=== PATIENT | female | born 1990 | race Two or more races ===

== ENCOUNTER 2017-01-17 23:58 | Emergency (ER) | payer MEDICAID, OTHER ==
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
[2017-01-18] MEDS ORDERED: ACETAMINOPHEN 325 MG TABLET PO STA (00:41)
[2017-01-18] MEDS ORDERED: IBUPROFEN 600 MG TABLET PO STA (00:41)
[2017-01-18] MEDS ORDERED: IBUPROFEN 600 MG TABLET PO ONE (00:58)
[2017-01-18] MEDS ORDERED: ACETAMINOPHEN 325 MG TABLET PO ONE (00:58)
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
[2017-01-18 01:59] VITALS: BP 118/69
== END 2017-01-18 01:59 | disposition home or self-care (01) ==
LOC: ED 23:58
DX: S62.366A Nondisplaced fracture of neck of fifth metacarpal bone, right hand, initial encounter for closed fracture (principal); W51.XXXA Accidental striking against or bumped into by another person, initial encounter; Y93.89 Activity, other specified
CPT/HCPCS: 29125; 73130; 99283; A9270

== ENCOUNTER 2018-06-07 09:34 | Emergency (ER) | payer MEDICAID, OTHER ==
[2018-06-07 10:41] LABS: BILIRUBIN,URINE NEGATIVE (NEGATIVE); CLARITY,URINE CLEAR (CLEAR); GLUCOSE, URINE (UA) NEGATIVE (NEGATIVE); KETONES,URINE (UA) NEGATIVE (NEGATIVE); LEUKOCYTE ESTERASE, URINE NEGATIVE (NEGATIVE); NITRITE,URINE NEGATIVE (NEGATIVE); OCCULT BLOOD,URINE NEGATIVE (NEGATIVE); PROTEIN,URINE NEGATIVE (NEGATIVE); UROBILINOGEN,URINE 0.2 (NORMAL) E.U./dL (NORMAL)
[2018-06-07 10:43] LABS: HCG UR QUAL NEGATIVE
[2018-06-07] MEDS ORDERED: KETOROLAC 60 MG/2 ML VIAL IM STA (14:05)
--- NOTE | 2018-06-07 14:08 | ED Physician Documentation ---
History of Present Illness - Stated complaint Stated Complaint: FEMALE /CRAMPING - Chief complaint Chief Complaint: Abd Pain - Additonal information Additional information: hx from pt 28 y/o female IUD X 2 years acute pelvic pain onset last night no vag bleed or dc Review of Systems Constitutional: denies: Fever GI: reports: Abdominal Pain : reports: Control (IUD). 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 - Present Medications Home Medications: Ambulatory Orders Medication Instructions Recorded Confirmed Levonorgestrel [Mirena] 1 each IY ONCE 06/07/18 06/07/18 - Allergies Allergies/Adverse Reactions: Allergies Allergy/AdvReac Type Severity Reaction Status Date / Time No Known Drug Allergies Allergy Verified 06/07/18 09:54 - Social History Does the pt smoke?: No Smoking Status: Never smoker Does the pt drink ETOH?: No Does the pt have substance abuse?: No - Immunizations Immunizations are current?: Yes - POLST Patient has POLST: No PD ED PE NORMAL - Vitals Vital signs reviewed: Yes - Cardiac Cardiac: RRR - Respiratory Respiratory: No respiratory distress, Clear bilaterally - Abdomen Abdomen: Soft. No: Non tender (TTP suprapubic) - Female Female : Office Support Assistant present (Nica), Other (small whitich dc, no blood, no IUD strings visible - even used CTA wipe away mucous and white dc and try to find the wires but cannot be seen of felt at this time, no CMT, cx sent) Results - Vitals Vitals: Vital Signs - 24 hr 06/07/18 06/07/18 06/07/18 09:52 16:43 16:45 Temperature 36.3 C L Heart Rate 97 94 Respiratory 14 16 Rate Blood Pressure 140/90 H 140/93 H O2 Saturation 100 98 06/07/18 18:28 Temperature Heart Rate 97 Respiratory 18 Rate Blood Pressure 120/86 H O2 Saturation 98 Oxygen O2 Source Room air - Labs Labs: Laboratory Tests 06/07/18 10:00 Urine Color YELLOW Urine Clarity CLEAR Urine pH 6.0 Ur Specific [place] 1.015 Urine Protein NEGATIVE Urine Glucose (UA) NEGATIVE Urine Ketones NEGATIVE Urine Occult Blood NEGATIVE Urine Nitrite NEGATIVE Urine Bilirubin NEGATIVE Urine Urobilinogen 0.2 (NORMAL) Ur Leukocyte Esterase NEGATIVE Ur Microscopic Review NOT INDICATED Urine Culture Comments NOT INDICATED Urine HCG, Qual NEGATIVE - Rads (name of study) pelvic sono with doppler Radiology: See rad report (IUD in place, otherwise normal uterus and ovaries) PD MEDICAL DECISION MAKING - ED course ED course: acute onset suprapubic pain exam not suggestive of appy, brown, PID etc UA neg HCG neg sono neg for cyst ruptures torsed or otherwise, although strings not visualized the IUD is in place on rpt exam still focally TTP over bueno[rapubic region, no localizing to RLQ perhaps pain from IUD strings in cervix ? will reassure and dc with meds for pain control and [facility] fup Wed when office reopens after holiday it is evening Raquel gloria per [facility] [place], all pharmacies on [facility], [facility] and [place] are closed until 06/09 initially was advised could dispense essential meds from ER for this situation then learned that according to [place] state law may not dispense except designated prepacks whih would be oxycodone hydrocodone and or flexeril so cancelled tramadol motrin and robaxin and changed to hydrocodone and flexeril and pt can buy OTC motrin pt upset about length of stay arrived at 0952 in room at 1306 seen by me, pelvic exam performed, pain meds given sono ordered after IUD string not visualized - at 1405 sono done at 1626 and resulted 1637 results reviewed and pt updated more pain meds given delay trying to determine how to get patients medications on holiday weekend with no pharmacies open in our community flagged for dc at 1802 dc at 1905 Departure - Departure Disposition: 01 Home, Self Care Clinical Impression: Pelvic pain Condition: Good Instructions: ED Pelvic Pain [facility] Follow-Up: Caden Parish MD [Provider Admit Priv/Credential] - Comments: Your exam does not suggest appendicitis or PID The urine sample showed no infection The test was negative On exam the IUD strings could be be seen - but on ultrasound the main IUD is in place in the uterine canal. Also the ovaries looked fine The exam does not suggest an infection but cultures have been sent and the ER staff will call if they are positive. It is possible the IUD wires are in the cervix causing cramping and pain I cannot remove the IUD as I cannot see the wires/strings So for now I suggest we let you go home with medication for the pain - medications were dispensed from the ER as all pharmacies are now closed - only a limited number of medications are available to dispense so provided hydrocodone and flexeril and you will need to take over the counter motrin And then have you follow up at the [facility] office Wed for a recheck and possible removal of the IUD. Forms: Activity restrictions Discharge Date/Time: 06/07/18 19:05
[2018-06-07] MEDS ORDERED: oxyCODONE 5 MG TABLET PO STA (16:34)
--- NOTE | 2018-06-07 16:37 | Ultrasound Report ---
Reason: pelvic pain, no IUD strings vis, acute Procedure Date: 06/07/2018 Accession Number: [id number] / [id number] Procedure: US - Pelvic w/Transvag+Doppler Comp CPT Code: FULL RESULT: EXAM: PELVIC ULTRASOUND EXAM DATE: 06/07/2018 04:26 PM. CLINICAL HISTORY: Pelvic pain, no IUD strings vis, acute. COMPARISON: None. TECHNIQUE: Realtime transabdominal pelvic scan performed to identify the uterus and adnexa and as an overview of other pelvic structures, followed by transvaginal scan to provide greater detail of the uterus and adnexa, with static image documentation. FINDINGS: Uterus: 10.4 x 4.1 x 5.8 cm, volume 129 cc. Anteverted position. Normal overall size and echotexture. Masses: None. Endometrium: 5.5 mm. Normal thickness of the endometrium. The IUD appears to be in expected position within the endometrial cavity. Cervix: Unremarkable. Right Ovary: 3.4 x 2.3 x 2.2 cm, volume 8.9 cc. Normal echotexture and blood flow. 1.9 cm simple right ovarian follicular cyst. Left Ovary: 3.4 x 1.6 x 2.2 cm, volume 6.2 cc. Normal echotexture and blood flow. Free Fluid: None. Other: None. IMPRESSION: 1. IUD appears to be in expected position within the endometrial cavity. 2. Normal appearance of the endometrium. 3. Bilateral ovaries appear normal. [facility]
[2018-06-07] MEDS ORDERED: HYDROmorphone 1 MG/ML CARPUJECT IM STA (17:54)
[2018-06-07] MEDS ORDERED: ONDANSETRON ODT 4 MG TABLET TL STA (17:54)
[2018-06-07] MEDS ORDERED: traMADol 50 MG TABLET PO STA (17:55)
[2018-06-07] MEDS ORDERED: METHOCARBAMOL 500 MG TABLET PO STA (17:56)
[2018-06-07] MEDS ORDERED: IBUPROFEN 400 MG TABLET PO STA (17:57)
[2018-06-07 18:29] VITALS: BP 120/86
[2018-06-07] MEDS ORDERED: HYDROcod/ACET 5/325 Prepack 4 PO STA (18:49)
[2018-06-07] MEDS ORDERED: CYCLOBENZAPRINE 10 MG Prepack 2 PO PRN (18:49)
== END 2018-06-07 19:05 | disposition home or self-care (01) ==
LOC: ED 09:34
DX: R10.2 Pelvic and perineal pain (principal)
CPT/HCPCS: 76830; 76856; 81003; 81025; 87491; 87591; 93975; 96372; 99283; 99284; A9270; J1170; Q0162; 81001; 87086

== ENCOUNTER 2018-06-09 08:00 | Outpatient (CLI) | payer OTHER | END 2018-06-09 23:59 | disposition home or self-care (01) | LOC: LAB.R 08:00 | PROVIDERS: ATTEND Obstetrics & Gynecology | DX: Z11.3 Encounter for screening for infections with a predominantly sexual mode of transmission (principal) | CPT/HCPCS: 87491; 87591 ==

== ENCOUNTER 2018-07-23 10:07 | Outpatient (CLI) | payer BC, OTHER ==
[2018-07-23 18:04] LABS: BASOPHILS % (AUTO) 0.3 %; EOSINOPHILS # (AUTO) 0.1 10^3/uL (0.0-0.7); HGB - HEMOGLOBIN 12.9 g/dL (12.0-16.0); LYMPHOCYTES # (AUTO) 1.5 10^3/uL (1.5-3.5); LYMPHOCYTES % (AUTO) 18.6 %; MEAN CORPUSCULAR HEMOGLOBIN 26.1 pg (27.0-31.0); MEAN CORPUSCULAR HGB CONC 31.4 g/dL (32.0-36.0); MEAN CORPUSCULAR VOLUME 83.2 fL (81.0-99.0); MEAN PLATELET VOLUME 9.2 fL (7.9-10.8); MONOCYTES # (AUTO) 0.5 10^3/uL (0.0-1.0); MONOCYTES % (AUTO) 6.9 %; NEUTROPHILS # (AUTO) 5.8 10^3/uL (1.5-6.6); NEUTROPHILS % (AUTO) 73.2 %; PLT - PLATELET COUNT 248 10^3/uL (130-450); RED BLOOD COUNT 4.95 10^6/uL (4.20-5.40); RED CELL DISTRIBUTION WIDTH 14.5 % (12.0-15.0); WHITE BLOOD COUNT 7.9 x10^3/uL (4.8-10.8)
[2018-07-23 18:32] LABS: HB2 TOTAL 14.1 g/dL; HEMOGLOBIN A1C 0.43 g/dL; HEMOGLOBIN A1C % 4.9 % (4.6-6.2)
[2018-07-23 18:36] LABS: ALBUMIN 4.2 g/dL (3.2-5.5); ALBUMIN/GLOBULIN RATIO 1.3 (1.0-2.2); BILIRUBIN,TOTAL 0.9 mg/dL (0.2-1.0); CALCIUM 9.4 mg/dL (8.5-10.3); CREATININE 0.8 mg/dL (0.4-1.0); TOTAL PROTEIN 7.4 g/dL (6.7-8.2)
== END 2018-07-23 10:08 | disposition home or self-care (01) ==
LOC: LAB.WCP 10:07
PROVIDERS: ATTEND Physician Assistant
DX: Z00.00 Encounter for general adult medical examination without abnormal findings (principal)
CPT/HCPCS: 36415; 80053; 83036; 84443; 85025

== ENCOUNTER 2018-10-01 12:51 | Emergency (ER) | payer BC ==
[2018-10-01 13:02] VITALS: BP 134/88
[2018-10-01 13:16] LABS: BILIRUBIN,URINE NEGATIVE (NEGATIVE); GLUCOSE, URINE (UA) NEGATIVE (NEGATIVE); KETONES,URINE (UA) NEGATIVE (NEGATIVE); LEUKOCYTE ESTERASE, URINE NEGATIVE (NEGATIVE); NITRITE,URINE NEGATIVE (NEGATIVE); OCCULT BLOOD,URINE NEGATIVE (NEGATIVE); PROTEIN,URINE NEGATIVE (NEGATIVE); UROBILINOGEN,URINE 0.2 (NORMAL) E.U./dL (NORMAL)
[2018-10-01 13:20] LABS: CLARITY,URINE CLEAR (CLEAR); HCG UR QUAL NEGATIVE
--- NOTE | 2018-10-01 13:53 | ED Physician Documentation ---
History of Present Illness - Stated complaint Stated Complaint: LOWER BACK PAIN - Chief complaint Chief Complaint: General - History obtained from History obtained from: Patient - History of Present Illness Timing: How many days ago (4) Pain level max: 6 Pain level now: 4 Improved by: rest - Additonal information Additional information: 28-year-old female with right low back pain. She states worse with walking and standing. Worse with palpation. States she has a small amount of dysuria at the end of urination. Denies any vaginal bleeding or discharge. No STD exposure. States she is not . Feels similar to back problems that she has had in the past. No fevers. No vomiting. 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 : None HEENT: None Psych: None Musculoskeletal: Chronic back pain Derm: None - Past Surgical History Past Surgical History: Yes Ortho: Other /WAFER SLICER: section - Present Medications Home Medications: Ambulatory Orders Medication Instructions Recorded Confirmed Levonorgestrel [Mirena] 1 each IY ONCE 06/07/18 06/07/18 Amitriptyline [Elavil] 10 mg PO DAILY 10/01/18 10/01/18 Meloxicam [Mobic] 7.5 mg PO BID PRN #20 tablet 10/01/18 buPROPion [Wellbutrin Sr] 100 mg PO BID 10/01/18 10/01/18 - Allergies Allergies/Adverse Reactions: Allergies Allergy/AdvReac Type Severity Reaction Status Date / Time No Known Drug Allergies Allergy Verified 10/01/18 12:59 - Social History Does the pt smoke?: No Smoking Status: Never smoker Does the pt drink ETOH?: No Does the pt have substance abuse?: No - Immunizations Immunizations are current?: Yes - POLST Patient has POLST: No PD ED PE NORMAL - Vitals Vital signs reviewed: Yes - General General: Alert and oriented X 3, No acute distress - HEENT HEENT: Moist mucous membranes - Neck Neck: Supple, no meningeal sign - Cardiac Cardiac: RRR, Strong equal pulses - Respiratory Respiratory: No respiratory distress, Clear bilaterally - Abdomen Abdomen: Soft, Non tender, Non distended - Back Back: No CVA TTP, No spinal TTP, Other (Normal examination of the back.) - Derm Derm: Warm and dry - Extremities Extremities: No edema, Other (Normal bilateral lower extremity patellar and ankle jerk reflexes. Normal great toe extension bilaterally. no saddle anesthesia) - Neuro Neuro: Alert and oriented X 3, No motor deficit, No sensory deficit Results - Vitals Vitals: Vital Signs - 24 hr 10/01/18 12:57 Temperature 36.5 C Heart Rate 108 H Respiratory 18 Rate Blood Pressure 134/88 H O2 Saturation 100 Oxygen O2 Source Room air - Labs Labs: Laboratory Tests 10/01/18 13:10 Urine Color YELLOW Urine Clarity CLEAR Urine pH 6.0 Ur Specific [place] <=1.005 Urine Protein NEGATIVE Urine Glucose (UA) NEGATIVE Urine Ketones NEGATIVE Urine Occult Blood NEGATIVE Urine Nitrite NEGATIVE Urine Bilirubin NEGATIVE Urine Urobilinogen 0.2 (NORMAL) Ur Leukocyte Esterase NEGATIVE Ur Microscopic Review NOT INDICATED Urine Culture Comments NOT INDICATED Urine HCG, Qual NEGATIVE PD MEDICAL DECISION MAKING - ED course Complexity details: reviewed results, considered differential (No cauda equina, no spinal epidural abscess, no fracture, no aortic dissection or evidence of aneursym rupture), d/w patient ED course: Patient with low back pain of unclear etiology. Appears musculoskeletal. Does not appear consistent with a kidney stone, appendicitis, UTI, pyelonephritis, PID, tubo-ovarian abscess. We will continue supportive care and follow-up with your doctor. Does have a history of low back pain in the same spot in the past. Patient counseled regarding signs and symptoms for which I believe and urgent re-evaluation would be necessary. Patient with good understanding of and agreement to plan and is comfortable going home at this time This document was made in part using voice recognition software. While efforts are made to proofread this document, sound alike and grammatical errors may occur. Departure - Departure Disposition: 01 Home, Self Care Clinical Impression: Low back pain Qualifiers: Chronicity: acute Back pain laterality: right Sciatica presence: without sciatica Qualified Code(s): M54.5 - Low back pain Condition: Good Instructions: ED Neck Back Pain General Follow-Up: Sybil Saenz PA [Primary Care Provider] - Within 1 week Prescriptions: Meloxicam [Mobic] 7.5 mg PO BID PRN #20 tablet PRN Reason: Pain Comments: Your urine is negative today. There is no evidence of infection there. We will try you on anti-inflammatories and have you follow-up with your doctor for furt her care. Discharge Date/Time: 10/01/18 14:01
== END 2018-10-01 14:01 | disposition home or self-care (01) ==
LOC: ED 12:51
DX: M54.5 Low back pain (principal); R30.0 Dysuria
CPT/HCPCS: 81001; 81003; 81025; 87086; 99283

== ENCOUNTER 2020-04-21 07:32 | Outpatient (CLI) | payer BC ==
--- NOTE | 2020-04-21 14:31 | Ultrasound Report ---
PROCEDURE: Abdomen Limited INDICATIONS: EPIGASTRIC DISCOMFORT TECHNIQUE: Real-time scanning was performed of the abdominal and retroperitoneal organs, with image documentatio n. COMPARISON: None. FINDINGS: Liver: The liver demonstrates diffusely increased echotexture without focal abnormalities which is co nsistent with chronic hepatocellular disease/hepatic steatosis. Gallbladder: Gallbladder is normal in appearance without gallstones, gallbladder wall thickening, or pericholecystic fluid. Negative sonographic Judd's sign. Biliary ducts: Intrahepatic bile ducts are non-dilated. Extrahepatic bile duct caliber measures 4 m m. Normal is 6-7 mm or less in diameter, or 10 mm or less post-cholecystectomy. Pancreas: Visualized portions of the pancreas are sonographically normal. Kidneys: Right kidney is normal in size and echotexture. Right kidney measures 10.4 cm long. No hydr onephrosis or nephrolithiasis. No solid masses. IMPRESSION: 1. Diffuse hepatic steatosis versus sequela of chronic hepatocellular disease. No focal intrahepatic abnormalities. 2. Normal sonographic evaluation of the gallbladder. 3. Normal appearance of the pancreas. Reviewed by: Greg Reyes MD on 04/21/2020 1:30 PM [facility] Approved by: Greg Reyes MD on 04/21/2020 1:30 PM [facility] Station ID: [id number]
== END 2020-04-21 07:33 | disposition home or self-care (01) ==
LOC: DI 07:32
PROVIDERS: ATTEND Surgery
DX: R10.13 Epigastric pain (principal)
CPT/HCPCS: 76705

== ENCOUNTER 2020-06-30 14:58 | Outpatient (CLI) | payer BC ==
--- NOTE | 2020-06-30 16:10 | XRAY Report ---
PROCEDURE: Knee 3 View LT INDICATIONS: KNEE JOINT PAIN, LEFT TECHNIQUE: 3 views of the left knee(s) were acquired. COMPARISON: None. FINDINGS: Bones: No fractures or dislocations. No suspicious bony lesions. Soft tissues: There is a small joint effusion. No suspicious soft tissue calcifications. IMPRESSION: Normal-appearing bones. Small knee joint effusion. If there is strong clinical concern for internal derangement of the knee, please consider a dedicated knee MRI for further evaluation (assuming that there is no contraindication). Reviewed by: Demetri Hough MD on 06/30/2020 3:08 PM [facility] Approved by: Demetri Hough MD on 06/30/2020 3:08 PM [facility] Station ID: [id number]
== END 2020-06-30 23:59 | disposition home or self-care (01) ==
LOC: DI.N 14:58
PROVIDERS: ATTEND Family Medicine
DX: M25.562 Pain in left knee (principal); M25.462 Effusion, left knee

== ENCOUNTER 2020-07-19 15:56 | Outpatient (CLI) | payer BC ==
--- NOTE | 2020-07-19 18:01 | MRI Report ---
PROCEDURE: Knee LT W/O INDICATIONS: L KNEE JOINT PAIN TECHNIQUE: Noncontrast sagittal PD fast spin echo and T2 fast spin echo with fat saturation, sagittal 3-D gradie nt sequence with fat saturation; coronal T1 spin echo and PD fast spin echo with fat saturation, and axial PD fast spin echo with fat saturation through the knee. COMPARISON: Left knee radiograph dated 06/30/2020. FINDINGS: Image quality: Excellent. Menisci: The medial and lateral menisci demonstrate normal morphology and internal signal. The meni scal root ligaments appear intact. Cruciate ligaments: The anterior and posterior cruciate ligaments appear intact. Medial structures: The medial collateral ligament appears intact. The posterior oblique ligament, s emimembranosus tendon insertions, and oblique popliteal ligament, and meniscocapsular junction appear intact. Visualized portions of the pes anserinus tendons appear normal. No abnormal bursal fluid. Lateral structures: The lateral collateral ligament, long and short heads of the biceps femoris tend on appear intact. The popliteus tendon appears normal; the popliteofibular ligament appears intact. The posterosuperior and anteroinferior popliteomeniscal fascicles appear intact. The arcuate and fa bellofibular ligaments appear intact, around the lateral inferior geniculate artery. Iliotibial band appears normal. Anterior structures: The quadriceps and patellar tendons appear intact. Patellar alignment is sammi l. No femoral trochlear dysplasia or ventral trochlear prominence. No edema in the infrapatellar fa t pad. Bones and cartilage: No bone marrow contusions or fractures. The cartilage of the medial and latera l femorotibial compartments, as well as the patellofemoral compartment, appears normal in thickness. Joint space: There is small amount of joint fluid. No Guerrero?s cyst. Normal appearing synovial plic ae are incidentally noted. IMPRESSION: 1. Cruciate ligaments are intact. No evidence of focal meniscal tear. 2. No marrow edema. No fracture or dislocation. Articulating cartilages are intact. Small joint effus ion, no gross loose body. 3. No evidence of internal derangement. Reviewed by: Deny Lomeli MD on 07/19/2020 5:00 PM [facility] Approved by: Deny Lomeli MD on 07/19/2020 5:00 PM [facility] Station ID: [id number]
== END 2020-07-19 15:57 | disposition home or self-care (01) ==
LOC: DI 15:56
PROVIDERS: ATTEND Physician Assistant
DX: M25.562 Pain in left knee (principal)

== ENCOUNTER 2020-08-06 17:00 | Outpatient (CLI) | payer BC | END 2020-08-06 17:01 | disposition home or self-care (01) | LOC: COV 17:00 | PROVIDERS: ATTEND Surgery | DX: Z01.812 Encounter for preprocedural laboratory examination (principal); R10.13 Epigastric pain; R11.2 Nausea with vomiting, unspecified; Z20.822 Contact with and (suspected) exposure to COVID-19 ==

== ENCOUNTER 2020-08-10 13:44 | Day surgery (SDC) | payer BC ==
[2020-08-10 14:19] LABS: HCG UR QUAL NEGATIVE
[2020-08-10] MEDS ORDERED: LACTATED RINGERS 1,000 ML IV ONE (14:27)
[2020-08-10] MEDS ORDERED: MIDAZOLAM 2 MG/2 ML VIAL ONE ×2 (16:20→16:40)
[2020-08-10] MEDS ORDERED: fentaNYL 100 MCG/2 ML VIAL ONE (16:21)
[2020-08-10] MEDS ORDERED: LACTATED RINGERS 75 ML IV ONE (16:42)
[2020-08-10 17:13] VITALS: BP 131/97
== END 2020-08-10 13:45 | disposition home or self-care (01) ==
LOC: SDS 13:44
PROVIDERS: ATTEND Surgery
PROC: 0DB78ZX Excision of Stomach, Pylorus, Via Natural or Artificial Opening Endoscopic, Diagnostic (ICD-10-PCS; 2020-08-10)
PROC: 0DB98ZX Excision of Duodenum, Via Natural or Artificial Opening Endoscopic, Diagnostic (ICD-10-PCS; principal; 2020-08-10 14:45)
DX: R10.13 Epigastric pain (principal); R11.2 Nausea with vomiting, unspecified; R19.7 Diarrhea, unspecified; K29.70 Gastritis, unspecified, without bleeding
CPT/HCPCS: 43239; 81025; J7120

== ENCOUNTER 2021-02-12 00:07 | Outpatient (CLI) | payer BC ==
--- NOTE | 2021-02-12 08:55 | XRAY Report ---
PROCEDURE: Lumbar Spine 2 View INDICATIONS: Back pain, Lumbar with radiculopathy TECHNIQUE: 3 views of the lumbar spine were acquired. COMPARISON: None. FINDINGS: Bones: 5 [id number] vertebrae are present. There is normal bony alignment. No vertebral body compression fractures. No suspicious bony lesions. Mild chronic degenerative changes at T11-12 and L5-S1. No disc space narrowing. Soft tissues: Overlying bowel gas pattern is normal. No suspicious soft tissue calcifications. IMPRESSION: No acute abnormality of the lumbar spine. Reviewed by: Best Whitman on 02/12/2021 8:53 AM PDT Approved by: Best Whitman on 02/12/2021 8:53 AM PDT Station ID: [id number]
== END 2021-02-12 00:08 | disposition home or self-care (01) ==
LOC: DI 00:07
PROVIDERS: ATTEND Nurse Practitioner
DX: M54.5 Low back pain (principal); M54.16 Radiculopathy, lumbar region

== ENCOUNTER 2022-06-27 08:00 | Outpatient (CLI) | payer SELFPAY ==
[2022-06-27 01:56] LABS: BASOPHILS % (AUTO) 0.3 %; HCT - HEMATOCRIT 41.2 % (37.0-47.0); LYMPHOCYTES # (AUTO) 2.5 10^3/uL (1.5-3.5); LYMPHOCYTES % (AUTO) 37.3 %; MEAN CORPUSCULAR HEMOGLOBIN 25.1 pg (27.0-31.0); MEAN CORPUSCULAR HGB CONC 31.6 g/dL (32.0-36.0); MEAN CORPUSCULAR VOLUME 79.7 fL (81.0-99.0); MEAN PLATELET VOLUME 9.5 fL (7.9-10.8); MONOCYTES # (AUTO) 0.5 10^3/uL (0.0-1.0); MONOCYTES % (AUTO) 6.8 %; NEUTROPHILS # (AUTO) 3.7 10^3/uL (1.5-6.6); NEUTROPHILS % (AUTO) 55.3 %; PLT - PLATELET COUNT 294 10^3/uL (130-450); RED BLOOD COUNT 5.17 10^6/uL (4.20-5.40); RED CELL DISTRIBUTION WIDTH 13.9 % (12.0-15.0); WHITE BLOOD COUNT 6.7 x10^3/uL (4.8-10.8)
[2022-06-27 02:07] LABS: ALBUMIN 4.4 g/dL (3.2-5.5); ALBUMIN/GLOBULIN RATIO 1.3 (1.0-2.2); BILIRUBIN,TOTAL 1.1 mg/dL (0.2-1.0); CALCIUM 9.6 mg/dL (8.5-10.3); CREATININE 0.8 mg/dL (0.4-1.0); POTASSIUM 4.1 mmol/L (3.5-5.0); TOTAL PROTEIN 7.7 g/dL (6.7-8.2)
== END 2022-06-27 23:59 | disposition home or self-care (01) ==
LOC: LAB 08:00
PROVIDERS: ATTEND Obstetrics & Gynecology
DX: R19.7 Diarrhea, unspecified (principal)
CPT/HCPCS: 36415; 80053; 81599; 85025; 86003

== ENCOUNTER 2022-10-23 13:24 | Emergency (ER) | payer BC ==
[2022-10-23 13:45] LABS: BASOPHILS % (AUTO) 0.5 %; HCT - HEMATOCRIT 40.4 % (37.0-47.0); HGB - HEMOGLOBIN 12.7 g/dL (12.0-16.0); LYMPHOCYTES # (AUTO) 3.2 10^3/uL (1.5-3.5); LYMPHOCYTES % (AUTO) 41.6 %; MEAN CORPUSCULAR HEMOGLOBIN 25.3 pg (27.0-31.0); MEAN CORPUSCULAR HGB CONC 31.4 g/dL (32.0-36.0); MEAN CORPUSCULAR VOLUME 80.6 fL (81.0-99.0); MEAN PLATELET VOLUME 9.3 fL (7.9-10.8); MONOCYTES # (AUTO) 0.5 10^3/uL (0.0-1.0); MONOCYTES % (AUTO) 6.8 %; NEUTROPHILS # (AUTO) 3.9 10^3/uL (1.5-6.6); NEUTROPHILS % (AUTO) 50.7 %; PLT - PLATELET COUNT 267 10^3/uL (130-450); RED BLOOD COUNT 5.01 10^6/uL (4.20-5.40); RED CELL DISTRIBUTION WIDTH 13.6 % (12.0-15.0); WHITE BLOOD COUNT 7.7 x10^3/uL (4.8-10.8)
[2022-10-23 14:02] LABS: ALBUMIN 4.2 g/dL (3.2-5.5); ALBUMIN/GLOBULIN RATIO 1.2 (1.0-2.2); BILIRUBIN,TOTAL 0.7 mg/dL (0.2-1.0); CALCIUM 9.2 mg/dL (8.5-10.3); CREATININE 0.8 mg/dL (0.4-1.0); TOTAL PROTEIN 7.6 g/dL (6.7-8.2)
--- NOTE | 2022-10-23 14:15 | ED Physician Documentation ---
PD HPI ABD PAIN - Stated complaint Stated Complaint: RT ABD PX - Chief complaint Chief Complaint: Abd Pain - History obtained from History obtained from: Patient - History of Present Illness Timing - onset: Today (about 7 hours ago (4 AM while at work).) Timing - duration: Hours (7) Timing - details: Gradual onset, Still present Quality: Cramping, Aching, Pain Location: RLQ Radiation: No: Chest, Lower back Associated symptoms: Nausea. 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 : None HEENT: None Psych: None Musculoskeletal: Chronic back pain Derm: None - Past Surgical History Past Surgical History: Yes Ortho: Other /GAS ENGINEER: section - Present Medications Home Medications: Ambulatory Orders Medication Instructions Recorded Confirmed Levonorgestrel [Mirena] 1 each IY ONCE 06/07/18 06/07/18 Amitriptyline [Elavil] 25 mg PO DAILY 10/01/18 08/09/20 Meloxicam [Mobic] 7.5 mg PO BID PRN #20 tablet 10/01/18 buPROPion [Wellbutrin Sr] 150 mg PO DAILY 10/01/18 08/09/20 Norgestimate-Ethinyl Estradiol 1 tab ORAL DAILY 08/09/20 08/09/20 [Ortho Tri-Cyclen 28 Tablet] Pantoprazole [Protonix] 40 mg ORAL DAILY 08/09/20 08/09/20 Venlafaxine HCl [Effexor Xr] 225 mg ORAL DAILY 08/09/20 08/09/20 busPIRone [Buspar] 15 mg ORAL DAILY 08/09/20 08/09/20 HYDROcod/ACETAM 5/325 [[place] 5/325] 1 ea PO Q6H PRN #10 tablet 10/23/22 Ondansetron Odt [Zofran] 4 mg TL Q6H PRN #10 tablet 05/11/23 Promethazine [Phenergan] 25 mg PO Q6H PRN #10 tab 10/23/22 - Allergies Allergies/Adverse Reactions: Allergies Allergy/AdvReac Type Severity Reaction Status Date / Time No Known Drug Allergies Allergy Verified 10/23/22 13:30 - Social History Does the pt smoke?: No Smoking Status: Never smoker Does the pt drink ETOH?: No Does the pt have substance abuse?: No - Immunizations Immunizations are current?: Yes - POLST Patient has POLST: No PD ED PE NORMAL - Vitals Vital signs reviewed: Yes - General General: Alert and oriented X 3, No acute distress, Well developed/nourished - HEENT HEENT: Pharynx benign - Neck Neck: Supple, no meningeal sign, No adenopathy - Cardiac Cardiac: RRR, No murmur - Respiratory Respiratory: No respiratory distress, Clear bilaterally - Abdomen Abdomen: Soft, Non distended, Other (tender RLQ at [place] point with local guarding. Mild percussion tenderness and no referred from other areas. ). No: Normal bowel sounds (diminished) Results - Vitals Vitals: Vital Signs - 24 hr 10/23/22 10/23/22 10/23/22 13:30 14:52 16:00 Temperature 37.1 C Heart Rate 88 83 95 Respiratory 16 16 16 Rate Blood Pressure 140/90 H 142/88 H 120/82 H O2 Saturation 98 97 100 10/23/22 16:37 Temperature Heart Rate 84 Respiratory 16 Rate Blood Pressure 124/77 O2 Saturation 98 Oxygen O2 Source Room air - Labs Labs: Laboratory Tests 10/23/22 10/23/22 10/23/22 13:41 13:41 13:51 WBC 7.7 RBC 5.01 Hgb 12.7 Hct 40.4 MCV 80.6 L MCH 25.3 L MCHC 31.4 L RDW 13.6 Plt Count 267 MPV 9.3 Neut # (Auto) 3.9 Lymph # (Auto) 3.2 [place] # (Auto) 0.5 Eos # (Auto) 0.0 Baso # (Auto) 0.0 Absolute Nucleated RBC 0.00 Nucleated RBC % 0.0 Sodium 141 Potassium 4.0 Chloride 105 Carbon Dioxide 26 Anion Gap 10.0 BUN 10 Creatinine 0.8 Estimated GFR (MDRD) 84 L Glucose 96 Calcium 9.2 Total Bilirubin 0.7 AST 24 ALT 34 Alkaline Phosphatase 61 Total Protein 7.6 Albumin 4.2 Globulin 3.4 Albumin/Globulin Ratio 1.2 Lipase 38 Urine Color LIGHT YELLOW Urine Clarity CLEAR Urine pH 6.0 Ur Specific [place] 1.025 Urine Protein NEGATIVE Urine Glucose (UA) NEGATIVE Urine Ketones NEGATIVE Urine Occult Blood NEGATIVE Urine Nitrite NEGATIVE Urine Bilirubin NEGATIVE Urine Urobilinogen 0.2 (NORMAL) Ur Leukocyte Esterase TRACE H Urine RBC 0-5 Urine WBC 0-3 Ur Squamous Epith Cells FEW Squamous Urine Bacteria Few Ur Microscopic Review INDICATED Urine Culture Comments INDICATED Urine HCG, Qual 10/23/22 13:51 WBC RBC Hgb Hct MCV MCH MCHC RDW Plt Count MPV Neut # (Auto) Lymph # (Auto) [place] # (Auto) Eos # (Auto) Baso # (Auto) Absolute Nucleated RBC Nucleated RBC % Sodium Potassium Chloride Carbon Dioxide Anion Gap BUN Creatinine Estimated GFR (MDRD) Glucose Calcium Total Bilirubin AST ALT Alkaline Phosphatase Total Protein Albumin Globulin Albumin/Globulin Ratio Lipase Urine Color Urine Clarity Urine pH Ur Specific [place] Urine Protein Urine Glucose (UA) Urine Ketones Urine Occult Blood Urine Nitrite Urine Bilirubin Urine Urobilinogen Ur Leukocyte Esterase Urine RBC Urine WBC Ur Squamous Epith Cells Urine Bacteria Ur Microscopic Review Urine Culture Comments Urine HCG, Qual NEGATIVE PD Medical Decision Making - ED course Complexity details: reviewed results (normal abd/pelvic CT. ), considered differential (RLQ pain onset and worsening over about 7 hours. LMP last week and so unlikely to be related to that. No history of ovarian cysts. Shared decision with patient about imaging and concluded to do CT since appy higher concern today. ), d/w patient Reviewed Lab Results: no lab results to Dx cause of pain. Normal CT. consider viral enteritis as she has now developed some nauseea, with an episode of emesis. Also with some loose stool x 2 here this afternoon now. Departure - Departure Disposition: 01 Home, Self Care Clinical Impression: Right lower quadrant abdominal pain, Leukocytes in urine Condition: Stable Record reviewed to determine appropriate education?: Yes Instructions: ED Abdominal Pain Female Non-Specific Abdominal Pain Follow-Up: FLAQUITA GALLEGOS DO [Primary Care Provider] - Prescriptions: HYDROcod/ACETAM 5/325 [[place] 5/325] 1 ea PO Q6H PRN #10 tablet PRN Reason: Pain Promethazine [Phenergan] 25 mg PO Q6H PRN #10 tab PRN Reason: Nausea / Vomiting Ondansetron Odt [Zofran] 4 mg TL Q6H PRN #10 tablet PRN Reason: Nausea / Vomiting Comments: Your basic blood count and chemistry panel are normal. test is negative. Your urine test shows a few white cells in the urine and a trace visible bacteria. This is often a contaminant rather than a true infection when its that minimal. I would suggest waiting for the urine culture and see if it has any true growth regarding infection. That will take 1 or 2 days. We will call you if there is any need to start antibiotics. Otherwise your CT scan does not show any obvious cause for the pain. Your appendix is normal. Ovaries are normal. No signs of free fluid or rupturing of a cyst etc. No kidney stones. Obviously there is something causing your pain. I be inclined at this point to think may be an early intestinal infection (stomach flu). As such she may have some nausea cramps and pains and perhaps loose stool for a day or 2. Use some basic anti-inflammatories such as ibuprofen naproxen etc. once or twice 2 or 3 times daily. Add Tylenol if needed for pain. I prescribed ondansetron if needed for nausea. I also prescribed promethazine since the Zofran here did not really work that well, but is less sedating so good to start with. Add pain medicine if needed for worse pains. Recheck if not improved over the next day or 2. If this just resolves in the next day or so then it may not be clear what the cause was but sometimes it can be just transient irritation of the intestine or swollen glands in the mesentery etc. and just resolved. As long as its not an ongoing or recurring symptoms. I sent your prescriptions to [facility] pharmacy. Off work tonight and see how you do with symptoms. I am prescribing a short course of narcotic pain medication for you. These are potentially dangerous and addictive medications that should be used carefully. These medications may constipate you. Take an evzi-uqc-lfzgeud stool softener such as docusate twice daily with plenty of water while taking these medications. If you go 24 hours without a bowel movement, take ezun-ieu-[id number] MiraLAX, per package instructions. Do not drink or drive while taking these medications. If you received narcotic or sedating medications while in the emergency department do not drive for 24 hours. Store this medication in a safe, secure place and out of reach of children. It is a violation of federal law to give or sell this medication to another person or to use in a manner other than prescribed. The ED will not refill narcotic prescriptions, including prescriptions lost or stolen. You can dispose of unwanted medications at the [facility]'s office or at several pharmacies such as [facility]. Forms: Activity restrictions Discharge Date/Time: 10/23/22 17:06
[2022-10-23 14:22] LABS: BILIRUBIN,URINE NEGATIVE (NEGATIVE); CLARITY,URINE CLEAR (CLEAR); GLUCOSE, URINE (UA) NEGATIVE (NEGATIVE); KETONES,URINE (UA) NEGATIVE (NEGATIVE); LEUKOCYTE ESTERASE, URINE TRACE (NEGATIVE); NITRITE,URINE NEGATIVE (NEGATIVE); OCCULT BLOOD,URINE NEGATIVE (NEGATIVE); PROTEIN,URINE NEGATIVE (NEGATIVE); UROBILINOGEN,URINE 0.2 (NORMAL) E.U./dL (NORMAL)
[2022-10-23 14:27] LABS: RBC,URINE 0-5 /HPF (0-5); SQUAMOUS EPITHELIAL CELL,UR FEW Squamous (<= Few); WBC,URINE 0-3 /HPF (0-5)
[2022-10-23 14:28] LABS: BACTERIA,URINE Few /HPF (None Seen)
[2022-10-23] MEDS ORDERED: KETOROLAC 15 MG/ML VIAL IVP STA (14:34)
[2022-10-23] MEDS ORDERED: ONDANSETRON 4 MG/2 ML VIAL IVP STA (14:34)
[2022-10-23 14:53] LABS: HCG UR QUAL NEGATIVE
[2022-10-23] MEDS ORDERED: iohexoL-300 100 ML VIAL ONE (14:55)
[2022-10-23] MEDS ORDERED: iohexoL-300 100 ML VIAL IVP ONE (15:29)
--- NOTE | 2022-10-23 15:59 | CT Report ---
PROCEDURE: ABDOMEN/PELVIS W INDICATIONS: RLQ pain since 4 am today CONTRAST: 100ml Omnipaque 300 TECHNIQUE: After the administration of intravenous contrast, 5 mm thick sections acquired from the diaphragms to the symphysis. 5 mm thick coronal and sagittal reformats were acquired. For radiation dose reducti on, the following was used: automated exposure control, adjustment of mA and/or kV according to hesham ent size. COMPARISON: None FINDINGS: Image quality: Excellent. Lung bases and heart: Unremarkable. Liver: Subcentimeter hypoattenuating lesion in segment 7, too small to characterize by CT. Gallbladder and biliary tree: Gallbladder sludge versus small stones. No wall thickening. No biliary dilation. Spleen: No splenomegaly. Pancreas: No pancreatic ductal dilation. Adrenals: No adrenal nodule. Kidneys and ureters: No hydronephrosis. No renal cystic lesion which requires follow up. No solid mas s. Bowel and peritoneum: No bowel distension. No pathologic free fluid. Normal appendix. Lymph nodes: No central or retroperitoneal adenopathy. Vessels: No infrarenal aortic aneurysm. Prominent left adnexal vasculature. PELVIS Reproductive organs: Symmetric size of the ovaries. Bladder: No abnormal wall thickening, accounting for underdistension. Pelvic lymph nodes: No pelvic adenopathy by size criteria. Bones: No aggressive osseous abnormality. Other: No significant ventral or inguinal hernia. IMPRESSION: No acute findings explaining the patient's right lower quadrant pain. Normal appendix. Symmetric ovar ies. No nephrolithiasis. Prominent left adnexal vasculature, which may be seen in the clinical setting of pelvic congestion sy ndrome. Reviewed by: Brice Hatfield on 10/23/2022 3:58 PM PDT Approved by: Brice Hatfield on 10/23/2022 3:58 PM PDT Station ID: [id number]
[2022-10-23] MEDS ORDERED: DROPERIDOL 5 MG/2 ML VIAL IVP STA (16:16)
[2022-10-23] MEDS ORDERED: HYDROmorphone 0.5 MG/0.5 ML SYRINGE IVP STA (16:17)
[2022-10-23 16:38] VITALS: BP 124/77
== END 2022-10-23 17:06 | disposition home or self-care (01) ==
LOC: ED 13:24
DX: R10.31 Right lower quadrant pain (principal); R82.998 Other abnormal findings in urine; Z79.899 Other long term (current) drug therapy
CPT/HCPCS: 36415; 74177; 80053; 81001; 81025; 83690; 85025; 87086; 96374; 96375; 99283; 99285; J1170; Q9967; 81003

== ENCOUNTER 2023-01-07 22:08 | Outpatient (CLI) | payer BC, MEDICAID ==
--- NOTE | 2023-01-08 10:02 | Ultrasound Report ---
PROCEDURE: OB First Trimester w/TV INDICATIONS: + PREG TEST OUTSIDE/PRIOR DATING DATA: Last menstrual period (LMP): 11/28/2022. LMP-based estimated date of delivery (LUZMARIA): 09/04/2023. First dating scan (date and location): Today's exam. Estimated date of delivery (LUZMARIA) from first dating scan: 08/31/2023. TECHNIQUE: Real-time scanning was performed of the fetus and maternal pelvic organs, with image documentation. Endovaginal scanning was also performed to better visualize the fetus and maternal ovaries. COMPARISON: None. FINDINGS: Intrauterine gestational sac present. Embryo: Present. [place]-rump length of 0.5 cm, corresponding to 6 weeks 2 days. Heart rate: 98 bpm. Other: No perigestational fluid collection. Measurement variability in dating: +/- 4 weeks by LMP, +/- 7 days by mean sac diameter (use before 6 weeks gestation if crown-rump length not able to be measured), +/- 5 days by crown-rump length (6-12 weeks gestation). Maternal organs: Ovaries appear within normal limits. IMPRESSION: Single living intrauterine at 6 weeks 2 days, LUZMARIA of 08/31/2023. bradycardia. Close monitoring is recommended. Reviewed by: Brice Hatfield on 01/08/2023 10:01 AM UZAIR Approved by: Brice Hatfield on 01/08/2023 10:01 AM PDT Station ID: [id number]
== END 2023-01-07 22:09 | disposition home or self-care (01) ==
LOC: DI 22:08
PROVIDERS: ATTEND Nurse Practitioner
DX: O36.8310 Maternal care for abnormalities of the fetal heart rate or rhythm, first trimester, not applicable or unspecified (principal); Z3A.01 Less than 8 weeks gestation of pregnancy

== ENCOUNTER 2023-01-08 06:48 | Outpatient (CLI) | payer BC, MEDICAID ==
[2023-01-08 07:13] LABS: BASOPHILS % (AUTO) 0.1 %; HCT - HEMATOCRIT 38.2 % (37.0-47.0); HGB - HEMOGLOBIN 12.3 g/dL (12.0-16.0); LYMPHOCYTES # (AUTO) 2.2 10^3/uL (1.5-3.5); LYMPHOCYTES % (AUTO) 29.6 %; MEAN CORPUSCULAR HEMOGLOBIN 25.5 pg (27.0-31.0); MEAN CORPUSCULAR HGB CONC 32.2 g/dL (32.0-36.0); MEAN CORPUSCULAR VOLUME 79.3 fL (81.0-99.0); MEAN PLATELET VOLUME 10.2 fL (7.9-10.8); MONOCYTES # (AUTO) 0.6 10^3/uL (0.0-1.0); MONOCYTES % (AUTO) 7.3 %; NEUTROPHILS # (AUTO) 4.6 10^3/uL (1.5-6.6); NEUTROPHILS % (AUTO) 61.8 %; PLT - PLATELET COUNT 294 10^3/uL (130-450); RED BLOOD COUNT 4.82 10^6/uL (4.20-5.40); RED CELL DISTRIBUTION WIDTH 13.8 % (12.0-15.0); WHITE BLOOD COUNT 7.5 x10^3/uL (4.8-10.8)
[2023-01-09 04:09] LABS: HBsAG SCREEN Negative (Negative); HCV AB Non Reactive (Non Reactive); HIV SCREEN 4TH GENERATION Non Reactive (Non Reactive)
[2023-01-09 08:10] LABS: RPR Non Reactive (Non Reactive); VARICELLA-ZOSTER AB IGG 2100 index (Immune >165)
== END 2023-01-08 06:49 | disposition home or self-care (01) ==
LOC: LAB 06:48
PROVIDERS: ATTEND Nurse Practitioner
DX: Z34.90 Encounter for supervision of normal pregnancy, unspecified, unspecified trimester (principal)
CPT/HCPCS: 36415; 85025; 86592; 86762; 86787; 86803; 86850; 86900; 86901; 87340; 87389

== ENCOUNTER 2023-01-19 08:00 | Outpatient (CLI) | payer BC, MEDICAID ==
[2023-01-19 22:33] LABS: CHLAMYDIA TRACHOMATIS DNA NEGATIVE (NEGATIVE); NEISSERIA GONORRHOEAE DNA NEGATIVE (NEGATIVE); TRICHOMONAS VAGINALIS DNA NEGATIVE (NEGATIVE)
[2023-01-19 22:53] LABS: BACTERIAL VAGINOSIS DNA NEGATIVE (NEGATIVE); CANDIDA GLABRATA DNA NEGATIVE (NEGATIVE); CANDIDA GROUP DNA POSITIVE (NEGATIVE); CANDIDA KRUSEI DNA NEGATIVE (NEGATIVE); TRICHOMONAS VAGINALIS DNA NEGATIVE (NEGATIVE)
== END 2023-01-19 23:59 | disposition home or self-care (01) ==
LOC: LAB.R 08:00
PROVIDERS: ATTEND Nurse Practitioner
DX: N89.8 Other specified noninflammatory disorders of vagina (principal); Z11.3 Encounter for screening for infections with a predominantly sexual mode of transmission
CPT/HCPCS: 81514; 87491; 87591; 87661

== ENCOUNTER 2023-02-09 15:49 | Outpatient (CLI) | payer BC, MEDICAID ==
[2023-02-09 16:15] LABS: BILIRUBIN,URINE NEGATIVE (NEGATIVE); GLUCOSE, URINE (UA) NEGATIVE (NEGATIVE); KETONES,URINE (UA) NEGATIVE (NEGATIVE); LEUKOCYTE ESTERASE, URINE NEGATIVE (NEGATIVE); NITRITE,URINE NEGATIVE (NEGATIVE); OCCULT BLOOD,URINE NEGATIVE (NEGATIVE); PROTEIN,URINE NEGATIVE (NEGATIVE); UROBILINOGEN,URINE 0.2 (NORMAL) E.U./dL (NORMAL)
[2023-02-09 16:20] LABS: CLARITY,URINE CLEAR (CLEAR)
[2023-02-09 16:59] LABS: BACTERIA,URINE None Seen /HPF (None Seen); RBC,URINE None Seen /HPF (0-5); SQUAMOUS EPITHELIAL CELL,UR FEW Squamous (<= Few); WBC,URINE 0-3 /HPF (0-5)
== END 2023-02-09 15:50 | disposition home or self-care (01) ==
LOC: LAB 15:49
PROVIDERS: ATTEND Nurse Practitioner
DX: Z34.90 Encounter for supervision of normal pregnancy, unspecified, unspecified trimester (principal)
CPT/HCPCS: 81001; 87086

== ENCOUNTER 2023-04-03 08:00 | Outpatient (CLI) | payer BC, MEDICAID ==
[2023-04-03 03:57] LABS: THYROID STIMULATING HORMONE 1.59 uIU/mL (0.34-5.60)
[2023-04-03 08:39] LABS: ESTIMATED AVERAGE GLUCOSE 103 mg/dL (70-100); HEMOGLOBIN A1c% 5.2 % (4.27-6.07)
== END 2023-04-03 23:59 | disposition home or self-care (01) ==
LOC: LAB 08:00
PROVIDERS: ATTEND Obstetrics & Gynecology
DX: O99.212 Obesity complicating pregnancy, second trimester (principal)
CPT/HCPCS: 36415; 83036; 84443

== ENCOUNTER 2023-04-15 16:27 | Outpatient (CLI) | payer BC, MEDICAID ==
--- NOTE | 2023-04-16 11:29 | Ultrasound Report ---
PROCEDURE: OB 14+ Weeks INDICATIONS: SUPERVISION OF OUTSIDE/PRIOR DATING DATA: Last menstrual period (LMP): 11/28/2022. LMP-based estimated date of delivery (LUZMARIA): 09/04/2023. First dating scan (date and location): 01/01/2023. Estimated date of delivery (LUZMARIA) from first dating scan: 08/31/2023. The below data below was generated using the ultrasound LUZMARIA of 08/31/2023 TECHNIQUE: Real-time scanning was performed of the fetus, with image documentation and biometric measurements. Endovaginal scanning: Not performed. COMPARISON: 01/08/2020 FINDINGS: General: A single living intrauterine gestation is present. Presentation: Variable Placenta: Placental position is posterior, without previa. Amniotic fluid index: 16.1 cm, within normal limits for gestational age. heart rate: 158 beats per minute. Maternal cervical canal: 5.6 cm long; normal length is 2.5 cm or more. biometrics: Biparietal diameter: 4.8 cm, 20 weeks 5 days, 70th percentile Head circumference: 80.4 cm, 20 weeks 6 days, 65th percentile Abdominal circumference: 17 cm, 20 weeks 0 days, 91st percentile Femur length: 3.5 cm, 20 weeks, 65th percentile Estimated gestational age from initial scan: 20 weeks 2 days Composite gestational age from present scan: 20 weeks 1 day Estimated weight and percentile: 423.6 g, 95th percentile Measurement variability for biometric dating: +/- 10 days from 12-20 weeks gestation, +/- 2 weeks fro m 20-30 weeks gestation, +/- 3 weeks for 30 weeks gestation or later. Anatomic survey: Neuro: Ventricles are non-dilated at less than 10 mm. Cisterna magna is normal at 3-11 mm. Cerebel lum is normal in size and morphology. Nuchal skin fold: Normal at less than 6 mm between 14-20 weeks gestational age. Face: Nose and lips, facial profile are not well visualized. Spine: No evidence for spina bifida. Heart: 4-chambered heart is present. Outflow tracts not visualized. Diaphragm: Diaphragm is intact. Stomach: Left-sided stomach is present. Kidneys: No hydronephrosis. Normal is less than 5 mm in 2nd trimester, less than 7 mm in 3rd trimester. Cord: 3-vessel cord has orthotopic insertion. Bladder: Normal in size. Extremities: All 4 extremities are not imaged. IMPRESSION: Single living intrauterine at 20 weeks 2 days, LUZMARIA of 08/31/2023. Estimated weight of 424 g, 95th percentile. Biophysical profile percentiles listed above. Facial profile, outflow tracts and extremities not completely visualized. Short-term follow-up should be considered. Reviewed by: Brice Hatfield on 04/16/2023 11:27 AM PDT Approved by: Brice Hatfield on 04/16/2023 11:27 AM PDT Station ID: [id number]
== END 2023-04-15 16:28 | disposition home or self-care (01) ==
LOC: DI 16:27
PROVIDERS: ATTEND Obstetrics & Gynecology
DX: Z34.92 Encounter for supervision of normal pregnancy, unspecified, second trimester (principal)

== ENCOUNTER 2023-05-01 08:00 | Outpatient (CLI) | payer BC, MEDICAID ==
[2023-05-01 21:36] LABS: BACTERIAL VAGINOSIS DNA NEGATIVE (NEGATIVE); CANDIDA GLABRATA DNA NEGATIVE (NEGATIVE); CANDIDA GROUP DNA POSITIVE (NEGATIVE); CANDIDA KRUSEI DNA NEGATIVE (NEGATIVE); TRICHOMONAS VAGINALIS DNA NEGATIVE (NEGATIVE)
== END 2023-05-01 23:59 | disposition home or self-care (01) ==
LOC: LAB.WC 08:00
PROVIDERS: ATTEND Nurse Practitioner
DX: N89.8 Other specified noninflammatory disorders of vagina (principal)
CPT/HCPCS: 81514

== ENCOUNTER 2023-05-08 19:01 | Outpatient (CLI) | payer BC, MEDICAID ==
--- NOTE | 2023-05-10 09:14 | Ultrasound Report ---
PROCEDURE: OB F/U or Repeat INDICATIONS: SUPERVISION OF OUTSIDE/PRIOR DATING DATA: Last menstrual period (LMP): 11/28/2022. LMP-based estimated date of delivery (LUZMARIA): 09/04/2023. First dating scan (date and location): 01/01/2023. Estimated date of delivery (LUZMARIA) from first dating scan: 08/31/2023. The below data below was generated using the ultrasound LUZMARIA of 08/31/2023 TECHNIQUE: Real-time scanning was performed of the fetus, with image documentation and biometric measurements. Endovaginal scanning: Not performed. COMPARISON: OB ultrasound on April 15, 2023. FINDINGS: General: A single living intrauterine gestation is present. Presentation: Vertex Placenta: Placental position is posterior, without previa. Amniotic fluid index: 14.8 cm, within normal limits for gestational age. heart rate: 152 beats per minute. Maternal cervical canal: 5 cm long; normal length is 2.5 cm or more. biometrics: Composite gestational age from present scan: 23 weeks and 4 days Largest pocket is 5.9 cm Other: The outflow tracts, facial profile and all 4 extremities are within normal limits IMPRESSION: 1. Single living intrauterine gestation in vertex presentation at 23 weeks and 4 days with estimated due date of 08/31/2023. 2. Facial profile, outflow tracts and extremities are completely visualized and are within normal walker its. Reviewed by: Frankie Ying MD on 05/10/2023 9:13 AM PST Approved by: Frankie Ying MD on 05/10/2023 9:13 AM PST Station ID: [id number]
== END 2023-05-08 19:02 | disposition home or self-care (01) ==
LOC: DI 19:01
PROVIDERS: ATTEND Obstetrics & Gynecology
DX: O99.212 Obesity complicating pregnancy, second trimester (principal); Z3A.23 23 weeks gestation of pregnancy

== ENCOUNTER 2023-05-21 08:00 | Outpatient (CLI) | payer BC, MEDICAID ==
[2023-05-21 03:06] LABS: HCT - HEMATOCRIT 31.5 % (37.0-47.0); HGB - HEMOGLOBIN 9.7 g/dL (12.0-16.0); MEAN CORPUSCULAR HEMOGLOBIN 25.4 pg (27.0-31.0); MEAN CORPUSCULAR HGB CONC 30.8 g/dL (32.0-36.0); MEAN CORPUSCULAR VOLUME 82.5 fL (81.0-99.0); MEAN PLATELET VOLUME 9.4 fL (7.9-10.8); RED BLOOD COUNT 3.82 10^6/uL (4.20-5.40); RED CELL DISTRIBUTION WIDTH 14.1 % (12.0-15.0); WHITE BLOOD COUNT 8.2 x10^3/uL (4.8-10.8)
[2023-05-21 03:24] LABS: ALBUMIN 3.6 g/dL (3.2-5.5); ALBUMIN/GLOBULIN RATIO 1.2 (1.0-2.2); BILIRUBIN,TOTAL 0.3 mg/dL (0.2-1.0); CALCIUM 8.9 mg/dL (8.5-10.3); CREATININE 0.5 mg/dL (0.6-1.3); POTASSIUM 3.5 mmol/L (3.5-4.5); TOTAL PROTEIN 6.5 g/dL (6.4-8.9)
[2023-05-21 03:44] LABS: FERRITIN 4.5 ng/mL (11.0-306.8)
== END 2023-05-21 23:59 | disposition home or self-care (01) ==
LOC: LAB 08:00
PROVIDERS: ATTEND Obstetrics & Gynecology
DX: Z34.90 Encounter for supervision of normal pregnancy, unspecified, unspecified trimester (principal)
CPT/HCPCS: 36415; 80053; 82728; 82950; 85027

== ENCOUNTER 2023-06-10 08:00 | Outpatient (CLI) | payer BC, MEDICAID ==
[2023-06-10 01:23] LABS: GTT GLUCOSE,FASTING 81 mg/dL (74-109)
[2023-06-10 04:14] LABS: HCT - HEMATOCRIT 32.9 % (37.0-47.0); MEAN CORPUSCULAR HEMOGLOBIN 24.3 pg (27.0-31.0); MEAN CORPUSCULAR HGB CONC 30.4 g/dL (32.0-36.0); RED BLOOD COUNT 4.11 10^6/uL (4.20-5.40); RED CELL DISTRIBUTION WIDTH 14.2 % (12.0-15.0)
== END 2023-06-10 23:59 | disposition home or self-care (01) ==
LOC: LAB 08:00
PROVIDERS: ATTEND Obstetrics & Gynecology
DX: E74.39 Other disorders of intestinal carbohydrate absorption (principal); D64.9 Anemia, unspecified
CPT/HCPCS: 36415; 82570; 82951; 82952; 84156; 85027

== ENCOUNTER 2023-06-12 08:00 | Outpatient (CLI) | payer BC, MEDICAID ==
[2023-06-12 03:01] LABS: CREATININE,URINE 269.4 mg/dL; PROTEIN/CREATININE RATIO,URINE 0.1 (<=0.2)
== END 2023-06-12 23:59 | disposition home or self-care (01) ==
LOC: LAB 08:00
PROVIDERS: ATTEND Obstetrics & Gynecology
DX: O16.9 Unspecified maternal hypertension, unspecified trimester (principal)
CPT/HCPCS: 82570; 84156

== ENCOUNTER 2023-06-22 17:05 | Outpatient (CLI) | payer BC, MEDICAID ==
--- NOTE | 2023-06-23 09:54 | Ultrasound Report ---
PROCEDURE: OB Follow up INDICATIONS: UTERINE SIZE DATE DISCREPENCY OUTSIDE/PRIOR DATING DATA: Last menstrual period (LMP): 11/28/2022. LMP-based estimated date of delivery (LUZMARIA): 09/04/2023. First dating scan (date and location): 01/07/2023. Estimated date of delivery (LUZMARIA) from first dating scan: 08/31/2023. The below data below was generated using the ultrasound LUZMARIA of 08/31/2023 TECHNIQUE: Real-time scanning was performed of the fetus, with image documentation and biometric measurements. Endovaginal scanning: Not performed. COMPARISON: 05/08/2023 and earlier studies FINDINGS: General: A single living intrauterine gestation is present. Presentation: Breech Placenta: Placental position is posterior, without previa. Amniotic fluid index: 19.9 cm, within normal limits for gestational age. Largest pocket is 5.3 cm heart rate: 153 beats per minute. Maternal cervical canal: Closed and 4.4 cm long; normal length is 2.5 cm or more. biometrics: Biparietal diameter: 7.9 cm, 31 weeks 5 days, 86th percentile Head circumference: 29.6 cm, 32 weeks, 5 days, 80th percentile Abdominal circumference: 25.8 cm, 30 weeks 0 days, 45th percentile Femur length: 6.0 cm, 31 weeks 3 days, 75th percentile Estimated gestational age from initial scan: 30 weeks 0 days Composite gestational age from present scan: 31 weeks 3 days Estimated weight and percentile: 1651 g, 68th percentile Measurement variability in biometric dating: +/- 10 days from 12-20 weeks gestation, +/- 2 weeks from 20-30 weeks gestation, +/- 3 weeks at 30 weeks gestation or more. Other: Not applicable. IMPRESSION: 1. Single intrauterine with growth 10 days ahead of the expected gestational age. 2. Amniotic fluid index 19.9 cm. 3. Estimated weight at the 68th percentile. Reviewed by: Tali Foley MD on 06/23/2023 9:53 AM PST Approved by: Tali Foley MD on 06/23/2023 9:53 AM PST Station ID: [id number]
== END 2023-06-22 17:06 | disposition home or self-care (01) ==
LOC: DI 17:05
PROVIDERS: ATTEND Obstetrics & Gynecology
DX: O26.843 Uterine size-date discrepancy, third trimester (principal); O10.913 Unspecified pre-existing hypertension complicating pregnancy, third trimester; O99.283 Endocrine, nutritional and metabolic diseases complicating pregnancy, third trimester; E74.39 Other disorders of intestinal carbohydrate absorption; Z3A.31 31 weeks gestation of pregnancy

== ENCOUNTER 2023-07-01 08:00 | Outpatient (CLI) | payer BC, MEDICAID ==
[2023-07-01 07:22] LABS: CREATININE,URINE 113.8 mg/dL; PROTEIN/CREATININE RATIO,URINE 0.1 (<=0.2)
[2023-07-01 12:04] LABS: BACTERIAL VAGINOSIS DNA NEGATIVE (NEGATIVE); CANDIDA GLABRATA DNA NEGATIVE (NEGATIVE); CANDIDA GROUP DNA POSITIVE (NEGATIVE); CANDIDA KRUSEI DNA NEGATIVE (NEGATIVE); TRICHOMONAS VAGINALIS DNA NEGATIVE (NEGATIVE)
== END 2023-07-01 23:59 | disposition home or self-care (01) ==
LOC: LAB 08:00
PROVIDERS: ATTEND Nurse Practitioner
DX: O34.211 Maternal care for low transverse scar from previous cesarean delivery (principal); O99.891 Other specified diseases and conditions complicating pregnancy; N89.8 Other specified noninflammatory disorders of vagina
CPT/HCPCS: 81514; 82570; 84156

== ENCOUNTER 2023-07-11 12:34 | Outpatient (CLI) | payer BC, MEDICAID ==
[2023-07-11 12:51] VITALS: BP 120/79
--- NOTE | 2023-07-11 13:14 | PROVIDER PROGRESS NOTE ---
- HPI Chief Complaint: Other (pelvic and abd discomfort. worse when she is working. n/v better last few days. still needing antiemetics. no bleeding.) Current : Vital Signs Temperature 98.6 F 07/11/23 12:45 Heart Rate 122 H 07/11/23 12:45 Respiratory Rate 16 07/11/23 12:45 Blood Pressure 120/79 07/11/23 12:45 Temperature 98.6 F 07/11/23 12:45 Heart Rate 122 H 07/11/23 12:45 Respiratory Rate 16 07/11/23 12:45 Blood Pressure 120/79 07/11/23 12:45 O2 Saturation If not protocol: Oxygen Flow, liters/minute - Exam abdomen is soft. some tenderness with pubis and above umbilicus where baby is moving alot. - Procedures OB Procedure Performed: NST Diagnosis/Indication for NST: Pre- Hypertension NST Procedure: baby is very active. FHT baseline 135 + acels, no decels. moderate variability. reactive NST no contractions. Findings: not in labor. just discomfort of late . - Plan Plan: reassured. work note given for light duty. stay hydrated. sleep best she can.
== END 2023-07-11 13:41 | disposition home or self-care (01) ==
LOC: FBP 12:34 → WFO 12:34
PROVIDERS: ATTEND Obstetrics & Gynecology
DX: O10.913 Unspecified pre-existing hypertension complicating pregnancy, third trimester (principal); O99.891 Other specified diseases and conditions complicating pregnancy; R10.2 Pelvic and perineal pain; R10.9 Unspecified abdominal pain; Z3A.32 32 weeks gestation of pregnancy
CPT/HCPCS: 59025; 99211; 99213

== ENCOUNTER 2023-07-23 18:58 | Outpatient (CLI) | payer BC, MEDICAID ==
--- NOTE | 2023-07-24 14:09 | Ultrasound Report ---
PROCEDURE: OB Follow up INDICATIONS: UTERINE SIZE DATE DISCREPENCY OUTSIDE/PRIOR DATING DATA: Last menstrual period (LMP): 11/28/2022. LMP-based estimated date of delivery (LUZMARIA): 09/04/2023. First dating scan (date and location): 01/07/2023. Estimated date of delivery (LUZMARIA) from first dating scan: 08/31/2023. The below data below was generated using the clinical LUZMARIA of 09/04/2023 TECHNIQUE: Ultrasound of the gravid uterus was performed and recorded. COMPARISON: None. FINDINGS: General: A single live intrauterine gestation is present. Presentation: Vertex Placenta: Placental position is posterior without previa. Amniotic fluid index: 15.2 cm, within normal limits for gestational age. heart rate: 145 beats per minute. Maternal cervical canal: 4.8 cm long; normal length is 2.5 cm or more. biometrics: Biparietal diameter: 9.0 cm, 36 week 3 day, 96.9 percentile Head circumference: 33.2 cm, 38 week 0 day, 96.5 percentile Abdominal circumference: 30.6 cm, 34 week 4 day, 73 percentile Femur length: 6.8 cm, 34 week 1 day, 74 percentile Estimated gestational age by dates: 33 week 6 day Composite gestational age by current ultrasound: 36 week 0 day Estimated weight and percentile: 2630.0 g, 82.9 percentile Measurement variability in biometric dating: +/- 10 days from 12-20 weeks gestation, +/- 2 weeks from 20-30 weeks gestation, +/- 3 weeks at 30 weeks gestation or more. Other: Incidental nuchal cord noted IMPRESSION: Single live intrauterine consistent with 36 week 0 day gestation by current ultrasound and 33 week 6 day by dates. Reviewed by: Ridge Ramos MD on 07/24/2023 1:07 PM MALACHI Approved by: Ridge Ramos MD on 07/24/2023 1:07 PM [facility] Station ID: [id number]
== END 2023-07-23 18:59 | disposition home or self-care (01) ==
LOC: DI 18:58
PROVIDERS: ATTEND Obstetrics & Gynecology
DX: O26.843 Uterine size-date discrepancy, third trimester (principal); O16.9 Unspecified maternal hypertension, unspecified trimester; O99.810 Abnormal glucose complicating pregnancy; Z3A.36 36 weeks gestation of pregnancy

== ENCOUNTER 2023-07-29 08:46 | Outpatient (CLI) | payer BC, MEDICAID ==
[2023-07-29 09:40] VITALS: BP 122/80
--- NOTE | 2023-07-29 20:03 | PROCEDURE REPORT ---
- HPI Current EDU 09/04/23 Gestation 34 Weeks and 5 Days 4 Para 1 Vital Signs Temperature 98.6 F 07/29/23 08:57 Heart Rate 114 H 07/29/23 08:57 Respiratory Rate 16 07/29/23 08:57 Blood Pressure 120/80 07/29/23 08:57 Temperature 98.6 F 07/29/23 08:57 Heart Rate 86 07/29/23 09:40 Respiratory Rate 16 07/29/23 08:57 Blood Pressure 122/80 07/29/23 09:40 O2 Saturation If not protocol: Oxygen Flow, liters/minute - NST Procedure NST Procedure Start Date 07/29/23 Start Time 08:56 Stop Time 09:33 Vibroacoustic Stimulation Used No Patient States Movement Yes - Results and Plan Plan: Patient is a 33-year-old -0-2-1 at 34 weeks 5 days gestation here for NST. NST Performed 07/29/2023 NST Read 07/29/2023 FHT: 150 bpm baseline, moderate variability, accelerations present, no decelerations. Reactive NST [place]: Quiescent Diagnosis 34 weeks gestation [ ] Continue with scheduled NST.
== END 2023-07-29 09:52 | disposition home or self-care (01) ==
LOC: WFO 08:46 → FBP 08:48 → WFO 09:52
PROVIDERS: ATTEND Obstetrics & Gynecology
DX: O16.3 Unspecified maternal hypertension, third trimester (principal); O99.213 Obesity complicating pregnancy, third trimester; Z3A.34 34 weeks gestation of pregnancy
CPT/HCPCS: 59025

== ENCOUNTER 2023-08-05 08:56 | Outpatient (CLI) | payer BC, MEDICAID ==
[2023-08-05 09:15] VITALS: BP 111/72
[2023-08-05 10:47] LABS: BASOPHILS % (AUTO) 0.2 %; LYMPHOCYTES # (AUTO) 1.8 10^3/uL (1.5-3.5); LYMPHOCYTES % (AUTO) 22.3 %; MEAN CORPUSCULAR HEMOGLOBIN 23.9 pg (27.0-31.0); MEAN CORPUSCULAR HGB CONC 31.4 g/dL (32.0-36.0); MEAN CORPUSCULAR VOLUME 76.1 fL (81.0-99.0); MEAN PLATELET VOLUME 9.9 fL (7.9-10.8); MONOCYTES # (AUTO) 0.7 10^3/uL (0.0-1.0); MONOCYTES % (AUTO) 8.9 %; NEUTROPHILS # (AUTO) 5.5 10^3/uL (1.5-6.6); PLT - PLATELET COUNT 267 10^3/uL (130-450); RED CELL DISTRIBUTION WIDTH 17.4 % (12.0-15.0); WHITE BLOOD COUNT 8.1 x10^3/uL (4.8-10.8)
[2023-08-05 11:04] LABS: ALBUMIN 3.5 g/dL (3.2-5.5); ALBUMIN/GLOBULIN RATIO 1.1 (1.0-2.2); BILIRUBIN,TOTAL 0.5 mg/dL (0.2-1.0); CALCIUM 9.2 mg/dL (8.5-10.3); CREATININE 0.5 mg/dL (0.6-1.3); POTASSIUM 3.9 mmol/L (3.5-4.5); TOTAL PROTEIN 6.6 g/dL (6.4-8.9)
--- NOTE | 2023-08-05 15:18 | PROCEDURE REPORT ---
- HPI Diagnosis/Indication for NST: Other (obesity) Current EDU 09/04/23 Gestation 35 Weeks and 5 Days 4 Para 1 Vital Signs Temperature 98.4 F 08/05/23 09:06 Heart Rate 115 H 08/05/23 09:06 Respiratory Rate 18 08/05/23 09:06 Blood Pressure 111/72 08/05/23 09:06 Temperature 98.4 F 08/05/23 09:06 Heart Rate 115 H 08/05/23 09:06 Respiratory Rate 18 08/05/23 09:06 Blood Pressure 111/72 08/05/23 09:06 O2 Saturation If not protocol: Oxygen Flow, liters/minute - NST Procedure NST Procedure Start Date 08/05/23 Start Time 09:11 Stop Time 09:50 Vibroacoustic Stimulation Used No Patient States Movement Yes done for obesity. c/o RUQ pain. so I came to see her. seems associated with her ribs and muscles of the anterior abd wall but will check labs to be sure. these were nromal. NST reviewed in real time. normal baseline. moderate variability. + acels. no decels. - Results and Plan Findings/Impression: reactive nst Plan: care as scheduled.
== END 2023-08-05 10:35 | disposition home or self-care (01) ==
LOC: WFO 08:56 → FBP 09:10 → WFO 10:35
PROVIDERS: ATTEND Obstetrics & Gynecology
DX: O99.213 Obesity complicating pregnancy, third trimester (principal); O16.3 Unspecified maternal hypertension, third trimester; O99.891 Other specified diseases and conditions complicating pregnancy; R10.11 Right upper quadrant pain; Z3A.35 35 weeks gestation of pregnancy
CPT/HCPCS: 36415; 59025; 80053; 82728; 85025; 99213

== ENCOUNTER 2023-08-06 08:00 | Outpatient (CLI) | payer BC, MEDICAID ==
[2023-08-06 22:19] LABS: BACTERIAL VAGINOSIS DNA NEGATIVE (NEGATIVE); CANDIDA GLABRATA DNA NEGATIVE (NEGATIVE); CANDIDA GROUP DNA POSITIVE (NEGATIVE); CANDIDA KRUSEI DNA NEGATIVE (NEGATIVE); TRICHOMONAS VAGINALIS DNA NEGATIVE (NEGATIVE)
== END 2023-08-06 23:59 | disposition home or self-care (01) ==
LOC: LAB.WC 08:00
PROVIDERS: ATTEND Nurse Practitioner
DX: N89.8 Other specified noninflammatory disorders of vagina (principal)
CPT/HCPCS: 81514; 87797

== ENCOUNTER 2023-08-08 20:59 | Outpatient (CLI) | payer BC, MEDICAID ==
[2023-08-08 21:37] VITALS: BP 129/80
--- NOTE | 2023-08-08 22:17 | PROVIDER PROGRESS NOTE ---
- HPI Chief Complaint: Pain, non-labor Current : Vital Signs Temperature 208.0 F H 08/08/23 21:08 Heart Rate 109 H 08/08/23 21:08 Respiratory Rate 18 08/08/23 21:08 Blood Pressure 129/80 08/08/23 21:08 Temperature 208.0 F H 08/08/23 21:08 Heart Rate 109 H 08/08/23 21:08 Respiratory Rate 18 08/08/23 21:08 Blood Pressure 129/80 08/08/23 21:08 O2 Saturation If not protocol: Oxygen Flow, liters/minute - Procedures OB Procedure Performed: NST NST Procedure: NST Procedure Start Time 09:11 Stop Time 09:50 - Plan Plan: Patient is a 33-year-old -0-2-1 at 36 weeks 1 day gestation presenting to triage for pelvic pain. She has been having this issue for quite some time although it is worsening and later in . She has pubic symphysis pain directly in her mid pelvis. At rest there is no pain. This worsens when moving, especially when stepping with her left leg. Gets better after starting walking, but initiating is very difficult. Had to have her son help her today as the pain was more significant. Has not taken anything for the pain. She has good movement, no leaking, no vaginal bleeding. She denies headache, right upper quadrant pain, changes in vision. Physical Exam Constitutional: alert, no acute distress, well hydrated, well developed, well nourished, appropriate dress. Cardiovascular: Regular rate and rhythm. Respiratory: no respiratory distress. Abdomen: nondistended, nontender, no guarding. Psych: affect and mood appropriate, normal interaction, good eye contact. Extremities: No pain to palpation (pain at pubic symphysis with hip flexion) normal range of motion. Normal strength. Normal sensation in bilateral lower extremities. Back: No CVA tenderness. Mild pubic symphysis discomfort with hip rocking. FHT: 135 beats per baseline, moderate variability, accelerations present, no decelerations. Reactive NST [place]: Irregular SVE: 0/0/-3 Assessment and plan Pubic symphysis dysfunction -Discussed likely course of this in . At this stage we will likely stay until after delivery. Should have some relief afterwards. She discussed that she can take Tylenol although she has been hesitant to do this. Warm baths may also relax the muscles although may not help with the pubic sepsis pain directly. Encouraged her to rest as able. -Discussed only 3 more work shifts as this is traditionally worsened her symptoms. She does feel like she can finish the last 3 remaining shifts. 36 weeks gestation -Continue routine care
== END 2023-08-08 22:37 | disposition home or self-care (01) ==
LOC: WFO 20:59 → FBP 21:01 → WFO 22:37
PROVIDERS: ATTEND Obstetrics & Gynecology
DX: O99.891 Other specified diseases and conditions complicating pregnancy (principal); R10.2 Pelvic and perineal pain; Z3A.36 36 weeks gestation of pregnancy
CPT/HCPCS: 59025; 99214

== ENCOUNTER 2023-08-18 17:02 | Outpatient (CLI) | payer BC, MEDICAID ==
--- NOTE | 2023-08-19 13:20 | Ultrasound Report ---
PROCEDURE: OB Follow up INDICATIONS: UTERINE SIZE DATE DISCREPENCY OUTSIDE/PRIOR DATING DATA: Last menstrual period (LMP): 11/28/22 in. LMP-based estimated date of delivery (LUZMARIA): 09/04/23. First dating scan (date and location): 01/07/23. Estimated date of delivery (LUZMARIA) from first dating scan: 08/31/23. The below data below was generated using the clinical LUZMARIA of 09/04/23 TECHNIQUE: Real-time scanning was performed of the fetus, with image documentation and biometric measurements. Endovaginal scanning: Not performed. COMPARISON: 08/18/23 FINDINGS: General: A single living intrauterine gestation is present. Presentation: Vertex Placenta: Placental position is posterior, without previa. Amniotic fluid index: 14.6 cm, within normal limits for gestational age. Largest pocket measures 5. 9 cm. heart rate: 155 beats per minute. Maternal cervical canal: not assessed biometrics: Biparietal diameter: 9.6 cm 39 weeks 0 days 94th percentile Head circumference: 35.2 cm 41 weeks 0 days 94th percentile Abdominal circumference: 35 cm 38 weeks 6 days 92nd percentile Femur length: 7.6 cm 39 weeks 0 days 84th percentile Estimated gestational age from initial scan: 37 weeks 4 days. Composite gestational age from present scan: 39 weeks 3 days Estimated weight and percentile: 3705 grams 92nd percentile Measurement variability in biometric dating: +/- 10 days from 12-20 weeks gestation, +/- 2 weeks from 20-30 weeks gestation, +/- 3 weeks at 30 weeks gestation or more. Other: Nucahl cord is present. IMPRESSION: Single live intrauterine with gestational age of 39 weeks 3 days. Nuchal is present. Reviewed by: Aditi Ott MD on 08/19/2023 1:19 PM PST Approved by: Aditi Ott MD on 08/19/2023 1:19 PM PST Station ID: [id number]
== END 2023-08-18 17:03 | disposition home or self-care (01) ==
LOC: DI 17:02
PROVIDERS: ATTEND Obstetrics & Gynecology
DX: O26.843 Uterine size-date discrepancy, third trimester (principal); O16.3 Unspecified maternal hypertension, third trimester; E74.39 Other disorders of intestinal carbohydrate absorption; O99.283 Endocrine, nutritional and metabolic diseases complicating pregnancy, third trimester; Z3A.39 39 weeks gestation of pregnancy

== ENCOUNTER 2023-08-19 09:01 | Outpatient (CLI) | payer BC, MEDICAID ==
[2023-08-19 09:21] VITALS: BP 110/79
--- NOTE | 2023-08-21 17:50 | PROCEDURE REPORT ---
- HPI Diagnosis/Indication for NST: Pre- Hypertension Current EDU 09/04/23 Gestation 37 Weeks and 5 Days 4 Para 1 Vital Signs Temperature 98.2 F 08/19/23 09:12 Heart Rate 99 08/19/23 09:12 Respiratory Rate 18 08/19/23 09:12 Blood Pressure 110/79 08/19/23 09:12 Temperature 98.2 F 08/19/23 09:12 Heart Rate 99 08/19/23 09:12 Respiratory Rate 18 08/19/23 09:12 Blood Pressure 110/79 08/19/23 09:12 O2 Saturation If not protocol: Oxygen Flow, liters/minute - NST Procedure NST Procedure Start Date 08/19/23 Start Time 09:07 Stop Time 09:33 Vibroacoustic Stimulation Used No Patient States Movement Yes NST reivewed. normal baseline. moderate variability. + acels. no decels. assessment: reactive NST Plan: care as scheduled.
== END 2023-08-19 09:38 | disposition home or self-care (01) ==
LOC: WFO 09:01 → FBP 09:03 → WFO 09:38
PROVIDERS: ATTEND Obstetrics & Gynecology
DX: O10.913 Unspecified pre-existing hypertension complicating pregnancy, third trimester (principal); O99.213 Obesity complicating pregnancy, third trimester; Z3A.37 37 weeks gestation of pregnancy
CPT/HCPCS: 59025

== ENCOUNTER 2023-08-20 15:28 | Inpatient (IN) | payer BC, MEDICAID ==
--- NOTE | 2023-08-20 14:41 | ANESTHESIA ---
Pre-Anesthesia VS, & Labs - Diagnosis hyperemesis, desires c/section, previous c/s - Procedure c/s Height: 5 ft 3 in - NPO Last Fluid Intake: sips h20 at 1600 Last Food Intake: emesis t/o day - Is Patient ?: Yes - Lab Results Lab results reviewed: Yes Fish Bones: 08/20/23 16:00 08/20/23 16:00 Home Medications and Allergies Levonorgestrel [Mirena] 1 each IY ONCE 06/07/18 Amitriptyline [Elavil] 25 mg PO DAILY 10/01/18 buPROPion [Wellbutrin Sr] 150 mg PO DAILY 10/01/18 Norgestimate-Ethinyl Estradiol [Ortho Tri-Cyclen 28 Tablet] 1 tab ORAL DAILY 08/09/20 Pantoprazole [Protonix] 40 mg ORAL DAILY 08/09/20 Venlafaxine HCl [Effexor Xr] 225 mg ORAL DAILY 08/09/20 busPIRone [Buspar] 15 mg ORAL DAILY 08/09/20 Allergies/Adverse Reactions: Allergies Allergy/AdvReac Type Severity Reaction Status Date / Time No Known Drug Allergies Allergy Verified 10/23/22 13:30 Anes History & Medical History - Anesthetic History Anesthesia Complications: reports: No previous complications Family history of Anesthesia Complications: Denies Family history of Malignant Hyperthermia: Denies - Medical History Cardiovascular: reports: None Pulmonary: reports: None Gastrointestinal: reports: GERD Urinary: reports: None Musculoskeletal: reports: Chronic back pain Endocrine/Autoimmune: reports: None Blood Disorders: reports: None Skin: reports: None Smoking Status: Never smoker - Surgical History Gynecologic: reports: section Orthopedic: reports: Other Exam General: Alert, Oriented x3, Cooperative Dental: WNL Mouth Openin Fingerbreadth Neck Mobility: Normal Mallampati classification: III Thyromental Distance: 4-6 cm Respiratory: Lungs clear, Normal breath sounds, No respiratory distress Cardiovascular: Regular rate Neurological: Normal speech Mental/Cognitive Status: Alert/Oriented X3, Normal for patient Cognitive Status: Within normal limits Plan Anesthesia Type: Spinal Regional Block: Per Surgeon's request for Post Op pain control Consent for Procedure(s) Verified and Reviewed: Yes Code Status: Attempt Resuscitation ASA classification: 2-Mild systemic disease Is this case an emergency?: Yes
[~2023-08-20 15:28] MED LIST: OXYTOCIN 10 UNIT/ML VIAL ONE; OXYTOCIN/SODIUM CHLORIDE 500 ML IV ONE; PHENYLEPHRINE HCL 0.5 MG/5 ML AMPULE ONE; SODIUM CHLORIDE 0.9% 10 ML VIAL IVP ONE; ePHEDrine 50 MG/ML VIAL IVP ONE
[2023-08-20 16:16] LABS: BASOPHILS % (AUTO) 0.3 %; HCT - HEMATOCRIT 35.3 % (37.0-47.0); HGB - HEMOGLOBIN 10.8 g/dL (12.0-16.0); LYMPHOCYTES # (AUTO) 1.5 10^3/uL (1.5-3.5); LYMPHOCYTES % (AUTO) 19.4 %; MEAN CORPUSCULAR HEMOGLOBIN 23.1 pg (27.0-31.0); MEAN CORPUSCULAR HGB CONC 30.6 g/dL (32.0-36.0); MEAN CORPUSCULAR VOLUME 75.4 fL (81.0-99.0); MEAN PLATELET VOLUME 10.3 fL (7.9-10.8); MONOCYTES # (AUTO) 0.5 10^3/uL (0.0-1.0); NEUTROPHILS # (AUTO) 5.6 10^3/uL (1.5-6.6); NEUTROPHILS % (AUTO) 72.8 %; PLT - PLATELET COUNT 271 10^3/uL (130-450); RED BLOOD COUNT 4.68 10^6/uL (4.20-5.40); RED CELL DISTRIBUTION WIDTH 18.1 % (12.0-15.0); WHITE BLOOD COUNT 7.7 x10^3/uL (4.8-10.8)
[2023-08-20 16:32] LABS: ALBUMIN 3.5 g/dL (3.2-5.5); ALBUMIN/GLOBULIN RATIO 1.2 (1.0-2.2); BILIRUBIN,TOTAL 0.7 mg/dL (0.2-1.0); CALCIUM 9.1 mg/dL (8.5-10.3); CREATININE 0.5 mg/dL (0.6-1.3); POTASSIUM 3.7 mmol/L (3.5-4.5); TOTAL PROTEIN 6.5 g/dL (6.4-8.9)
[2023-08-20] MEDS ORDERED: LACTATED RINGERS 1,000 ML ONE (16:38)
[2023-08-20] MEDS ORDERED: OXYTOCIN/SODIUM CHLORIDE 500 ML IV ONE (16:46)
[2023-08-20] MEDS ORDERED: MORPHINE PF 5 MG/10 ML VIAL ONE (16:54)
[2023-08-20] MEDS ORDERED: fentaNYL 100 MCG/2 ML VIAL ONE (16:54)
[2023-08-20] MEDS ORDERED: NALOXONE 0.4 MG/ML VIAL IVP PRN ×3 (16:57→20:11)
[2023-08-20] MEDS ORDERED: MORPHINE 2 MG/ML CARPUJECT IVP PRN (16:57)
[2023-08-20] MEDS ORDERED: HYDROmorphone 0.5 MG/0.5 ML SYRINGE IVP PRN (16:57)
[2023-08-20] MEDS ORDERED: METOCLOPRAMIDE 10 MG/2 ML VIAL IVP PRN (16:57)
[2023-08-20] MEDS ORDERED: fentaNYL 100 MCG/2 ML VIAL IVP PRN (16:57)
[2023-08-20] MEDS ORDERED: ePHEDrine 50 MG/ML VIAL IVP PRN ×2 (16:57→17:48)
[2023-08-20] MEDS ORDERED: ATROPINE ABBOJECT 1 MG/10 ML SYRINGE IVP PRN (16:57)
[2023-08-20] MEDS ORDERED: ONDANSETRON 4 MG/2 ML VIAL IVP PRN ×2 (16:57→17:48)
[2023-08-20] MEDS ORDERED: ceFAZolin 2 GM VIAL IV ONE (17:00)
[2023-08-20] MEDS ORDERED: LACTATED RINGERS 1,000 ML IV SCH ×2 (17:00→21:00)
[2023-08-20] MEDS ORDERED: ACETAMINOPHEN 1,000 MG/100 ML 1,000 MG/100 ML BAG IV ONE (17:00)
[2023-08-20] MEDS ORDERED: ONDANSETRON 4 MG/2 ML VIAL ONE (17:15)
[2023-08-20] MEDS ORDERED: fentaNYL 100 MCG/2 ML VIAL IT ONE (17:40)
[2023-08-20] MEDS ORDERED: MORPHINE PF 5 MG/10 ML VIAL IT ONE (17:40)
[2023-08-20] MEDS ORDERED: NALBUPHINE 10 MG/ML AMP IVP PRN (17:48)
[2023-08-20] MEDS ORDERED: PHENYLEPHRINE HCL 0.5 MG/5 ML AMPULE ONE (18:08)
[2023-08-20] MEDS ORDERED: KETOROLAC 30 MG/ML VIAL ONE (18:08)
[2023-08-20] MEDS ORDERED: TRANEXAMIC ACID 1,000 MG/10 ML VIAL ONE (18:33)
[2023-08-20] MEDS: LACTATED RINGERS 1,000 ML IV ONE (19:13)
--- NOTE | 2023-08-20 19:26 | ANESTHESIA POST OP EVALUATION ---
Anesthesia Post Eval - Post Anesthesia Eval Vitals: Last Vital Signs Temp 36.1 C L 08/20/23 19:20 Pulse 86 08/20/23 19:20 Resp 22 08/20/23 19:20 BP 118/67 08/20/23 19:20 Pulse Ox 98 08/20/23 19:20 O2 Flow Rate CV Function Including HR & BP: Stable Pain Control: Satisfactory Nausea & Vomiting: Negative Mental Status: Baseline Respiratory Status: Airway Patent Hydration Status: Satisfactory Anesthesia Complications: None
[2023-08-20] MEDS ORDERED: hydrALAZINE INJ 20 MG/ML VIAL IVP PRN ×2 (20:11)
[2023-08-20] MEDS ORDERED: NIFEdipine 10 MG CAPSULE PO PRN (20:11)
[2023-08-20] MEDS ORDERED: LABETALOL 20 MG/4 ML SYRINGE IVP PRN ×3 (20:11)
[2023-08-20] MEDS ORDERED: OXYTOCIN/SODIUM CHLORIDE 500 ML IV PRN (20:11)
[2023-08-20] MEDS ORDERED: diphenhydrAMINE 25 MG CAPSULE PO PRN (20:11)
[2023-08-20] MEDS ORDERED: FAMOTIDINE 20 MG/2 ML VIAL IVP SCH (21:00)
--- NOTE | 2023-08-20 21:09 | OPERATIVE REPORT ---
Operative Report - General Admit Date: 08/20/23 Procedure Date: 08/20/23 Planned Procedure: Repeat Low transverse c section and bilateral salpingectomies Pre-Op Diagnosis: 37 w 6d, hyperemesis, chronic htn, prior c section, desires sterility Procedure Performed: same Post Op Diagnosis: same - Procedure Note Primary Surgeon: Cami Erickson MD Secondary Surgeon: MELISSA Jolly Anesthesia Provider: Scar Chávez CRNA Anesthesia Technique: Spinal Pathology: none IV Fluids (mL): 1,500 Estimated Blood Loss (mL): 1,300 Indications: prior c section. chronic htn, vomiting today quite severe from hyperemesis. unable to keep anything down. Findings: live female named Michell. baby required resuscitation. in nursery on high flow. muscles and peritoneum were scarred onto uterus, more on left. Tissue planes were not present. seems uterus was stuck to anterior abdominal wall. very hard to get in. placenta was anterior. Left adnexa was scarred as well. tubes and ovaries appeared normal. Complications: none - Other Other Information/Narrative: patient quite miserable with vomiting today. given chronic htn history and vomiting, plan to deliver today. discussed that baby may have breathing issues at this GA. BAby is large for gestational age. risks discussed and consents signed. patient brought to OR and spinal anesthesia was administered. the block was quite dense and then pateint was vomiting from hypotension as we started case. She was prepped and draped in normal fashion. Ancef 2 gm in. saunders catheter. SCDS on her legs. time out done. anesthesia tested. team ready. Pfanensteil incision made thru her prior incision. carried down to fascia which was scarred. transected bilaterally. rectus muscles disected off inferiorly. Superiorly it was very hard to get them down and to get into them open. This was done carefully. Ultimately some of the muscles on the right were cut to get more room. The muscles were scarred onto the peritoneum and uterus. Tissue planes were not present. The tissue was very constricted. The patient was hypotensive. I was finally able to go above the adhesions and find the peritoneal cavity. this was entered and I worked back down. I was able to make enough space to place the Donovan retractor. The front of the uterus was stuck to the muscles. This was cleared some. A low transverse uterine incision was made and I cut into placenta. there was a lot of bleeding. I was able to get into the uterine cavity. The insicion was stretched and cut some with bandage scissors as it did not stretch well. The baby's head was elevated and at the opening but would not come out. the uterus did not have tone to expell it. I tried a forceps blade but the head just kept floating up into the uterus. I then grabbed one foot and then the other and delivered the baby feet first. She was limp when she got out. cord was clamped and cut quickly and she was handed to the [facility]. cord blood was collected. Baby cried well at the warmer so I did not collect gases but then she struggled again. placenta was delivered wtih gentle traction. uterus was cleared of clots and debris. Uterine incison was closed with running locked 0 Monocryl suture. A second horizontal imbricating layer was placed. In getting to the uterus, there were many raw surfaces created. these were bleeding. a number of figure of 8 stitches were placed before and after the salpingectomies. pressure was held. The uterus was delivered out of the incision to be able to get to the end of the left tube that was stuck deep to the broad ligament and the ovary. This was able to be freed. Ligasure was used to remove the tube on the left and then right side. Patient agrees that her tubes could be discarded as they appeared normal besides the scarring. Attention was turned back to the hysterotomy sight. There was still more bleeding than I felt safe to leave. A few more stitches were placed. Floseal was used. TXA was given iv. Bovie was used. Pressure was given. I then felt it was safe to continue with closing. The pateint tolerated all of this manipulation very well. The muscles were inspected carefully on both sides. small bleeders were cauterized. there was not significant bleeding. Fascia was then closed with 0 Vicryl suture. Sub q space was checked for bleeding and closed with 3-0 Monocryl. Skin was closed wtih 4-0 Monocryl in subcuticular fashion. Patient was then brought to her room in stable condition. It is fortunate that she wanted a sterilization procedure. It would be good never to have to go into her abdomen for a c section again.
[2023-08-20] MEDS: METOCLOPRAMIDE 10 MG/2 ML VIAL IVP PRN (22:19)
[2023-08-20] MEDS: KETOROLAC 30 MG/ML VIAL IVP SCH (22:20)
[2023-08-20] MEDS: diphenhydrAMINE INJ 50 MG/ML VIAL IVP PRN (22:23)
[2023-08-21] MEDS: ACETAMINOPHEN 500 MG TABLET PO SCH (04:25)
[2023-08-21 06:06] LABS: HGB - HEMOGLOBIN 8.2 g/dL (12.0-16.0); MEAN CORPUSCULAR HEMOGLOBIN 22.8 pg (27.0-31.0); MEAN CORPUSCULAR HGB CONC 29.3 g/dL (32.0-36.0); MEAN PLATELET VOLUME 10.5 fL (7.9-10.8); RED BLOOD COUNT 3.59 10^6/uL (4.20-5.40); RED CELL DISTRIBUTION WIDTH 18.1 % (12.0-15.0); WHITE BLOOD COUNT 8.5 x10^3/uL (4.8-10.8)
[2023-08-21] MEDS: CALCIUM CARBONATE CHEW 500 MG TABLET PO PRN (07:46)
--- NOTE | 2023-08-21 08:29 | PROVIDER PROGRESS NOTE ---
Subjective - Subjective Subjective: Subjective Patient reports she is doing well. Lochia appropriate. Denies heavy bleeding. Ambulating. Pelvic and abdominal pain well-controlled. Tolerating oral intake. Diet: Regular. Voiding without difficulty. Passing flatus. Denies BM. Patient is bonding with baby , Currently in nursery with oxygen. Pumping going well. Denies feeling lightheaded, dizzy or excessively fatigued. control: Bilateral salpingectomy Objective General: Alert, oriented, no apparent distress. Cardiovascular: Regular rate. Regular rhythm. Lungs: No increased work of breathing. Abdomen: Uterus firm. Below umbilicus. No guarding or rebound. Extremities: No pain on palpation. No cords palpated. Distal pulses intact. Incision: Bandage in place. Assessment and Plan day 1. -Routine care -Anticipate discharge tomorrow Repeat section -Will remove bandage prior to discharge. Objective - Vital Signs/Intake & Output Vital Signs: Vital Signs x48h Temp Pulse Resp BP Pulse Ox 08/21/23 07:37 98.2 F 89 20 100/72 99 08/21/23 04:17 98.1 F 85 120/77 Intake & Output: Intake & Output 08/18/23 08/19/23 08/20/23 08/21/23 23:59 23:59 23:59 23:59 Output Total 400 Balance -400 - Lab Results Fish Bones: 08/21/23 04:59 08/20/23 16:00 Other Labs: Lab Results x24hrs 08/21/23 08/20/23 08/20/23 Range/Units 04:59 16:00 16:00 WBC 8.5 7.7 (4.8-10.8) x10^3/uL RBC 3.59 L 4.68 (4.20-5.40) 10^6/uL Hgb 8.2 L 10.8 L (12.0-16.0) g/dL Hct 28.0 L 35.3 L (37.0-47.0) % MCV 78.0 L 75.4 L (81.0-99.0) fL MCH 22.8 L 23.1 L (27.0-31.0) pg MCHC 29.3 L 30.6 L (32.0-36.0) g/dL RDW 18.1 H 18.1 H (12.0-15.0) % Plt Count 231 271 (130-450) 10^3/uL MPV 10.5 10.3 (7.9-10.8) fL Neut # (Auto) 5.6 (1.5-6.6) 10^3/uL Lymph # (Auto) 1.5 (1.5-3.5) 10^3/uL [place] # (Auto) 0.5 (0.0-1.0) 10^3/uL Eos # (Auto) 0.0 (0.0-0.7) 10^3/uL Baso # (Auto) 0.0 (0.0-0.1) 10^3/uL Absolute Nucleated RBC 0.00 x10^3/uL Nucleated RBC % 0.0 /100WBC Sodium 136 (135-145) mmol/L Potassium 3.7 (3.5-4.5) mmol/L Chloride 107 (101-111) mmol/L Carbon Dioxide 19 L (21-32) mmol/L Anion Gap 10.0 (6-13) BUN 4 L (6-20) mg/dL Creatinine 0.5 L (0.6-1.3) mg/dL Estimated GFR (MDRD) 143 (>89) Glucose 87 (74-104) mg/dL Calcium 9.1 (8.5-10.3) mg/dL Total Bilirubin 0.7 (0.2-1.0) mg/dL AST 14 (10-42) IU/L ALT 11 (10-60) IU/L Alkaline Phosphatase 129 H (42-121) IU/L Total Protein 6.5 (6.4-8.9) g/dL Albumin 3.5 (3.2-5.5) g/dL Globulin 3.0 (2.1-4.2) g/dL Albumin/Globulin Ratio 1.2 (1.0-2.2) Blood Type Antibody Screen 08/20/23 Range/Units 16:00 WBC (4.8-10.8) x10^3/uL RBC (4.20-5.40) 10^6/uL Hgb (12.0-16.0) g/dL Hct (37.0-47.0) % MCV (81.0-99.0) fL MCH (27.0-31.0) pg MCHC (32.0-36.0) g/dL RDW (12.0-15.0) % Plt Count (130-450) 10^3/uL MPV (7.9-10.8) fL Neut # (Auto) (1.5-6.6) 10^3/uL Lymph # (Auto) (1.5-3.5) 10^3/uL [place] # (Auto) (0.0-1.0) 10^3/uL Eos # (Auto) (0.0-0.7) 10^3/uL Baso # (Auto) (0.0-0.1) 10^3/uL Absolute Nucleated RBC x10^3/uL Nucleated RBC % /100WBC Sodium (135-145) mmol/L Potassium (3.5-4.5) mmol/L Chloride (101-111) mmol/L Carbon Dioxide (21-32) mmol/L Anion Gap (6-13) BUN (6-20) mg/dL Creatinine (0.6-1.3) mg/dL Estimated GFR (MDRD) (>89) Glucose (74-104) mg/dL Calcium (8.5-10.3) mg/dL Total Bilirubin (0.2-1.0) mg/dL AST (10-42) IU/L ALT (10-60) IU/L Alkaline Phosphatase (42-121) IU/L Total Protein (6.4-8.9) g/dL Albumin (3.2-5.5) g/dL Globulin (2.1-4.2) g/dL Albumin/Globulin Ratio (1.0-2.2) Blood Type A POSITIVE Antibody Screen NEGATIVE
[2023-08-21] MEDS: DOCUSATE SODIUM 100 MG CAPSULE PO SCH (09:11)
[2023-08-21] MEDS: ENOXAPARIN 40 MG/0.4 ML SYRINGE SUBQ SCH (09:11)
[2023-08-21] MEDS: oxyCODONE 5 MG TABLET PO PRN (17:02)
[2023-08-21] MEDS: SIMETHICONE CHEW 80 MG TABLET PO PRN (17:07)
[2023-08-21] MEDS: IBUPROFEN 600 MG TABLET PO SCH (17:18)
[2023-08-21 23:57] VITALS: O2SAT 98
[2023-08-22 08:50] VITALS: BP 109/71
--- NOTE | 2023-08-22 09:02 | Discharge Plan ---
Discharge Plan Problem Reviewed?: Yes Disposition: Home, Self Care Condition: Good Prescriptions: Docusate Sodium 100Mg Capsule [Colace 100Mg Capsule] 100 - 200 mg PO BID PRN #60 cap PRN Reason: Constipation Ibuprofen [Motrin] 600 mg PO Q6H PRN #30 tab PRN Reason: Pain oxyCODONE [Roxicodone] 5 mg PO Q4H PRN #20 tablet PRN Reason: Severe Pain Diet: Regular Shower Restrictions: No Instruction Topics: C Section Dc, Depression No Smoking: If you smoke, Please STOP! Call for help. Follow-up with: Sam Steele MD [Provider Admit Priv/Credential] -
--- NOTE | 2023-08-22 09:02 | DISCHARGE SUMMARY ---
Discharge Summary Admit Date: 08/20/23 Discharge Date: 08/22/23 Discharging Provider: Sam Steele MD Code Status: Attempt Resuscitation Condition at Discharge: Good Discharge Disposition: 01 Home, Self Care - DIAGNOSES Admission Diagnoses: Term gestation Previous low-transverse section Desires sterility Chronic hypertension Discharge Diagnoses with Status of Each Condition: Term gestation Previous low-transverse section Desires sterility Chronic hypertension Status post repeat low-transverse section Delivery of live finnegan Status post bilateral salpingectomies - HPI History of Present Illness: Subjective Patient reports she is doing well. Lochia appropriate. Denies heavy bleeding. Ambulating. Pelvic and abdominal pain well-controlled. Tolerating oral intake. Diet: Regular. Voiding without difficulty. Passing flatus. Denies BM. Patient is bonding with baby in room Breast feeding going well. Denies feeling lightheaded, dizzy or excessively fatigued. Control: Bilateral salpingectomies Objective General: Alert, oriented, no apparent distress. Cardiovascular: Regular rate. Regular rhythm. Lungs: No increased work of breathing. Abdomen: Uterus firm. Below umbilicus. No guarding or rebound. Extremities: No pain on palpation. No cords palpated. Distal pulses intact. Incision: Clean, dry, and intact. Steri-Strips in place - HOSPITAL COURSE Hospital Course: Patient was admitted at term for chronic hypertension with new onset nausea and previous low-transverse section. She underwent a repeat low-transverse section that was rather difficult with abundant scar tissue. She also had bilateral salpingectomies. had some initial oxygen struggles although was weaned early on day 1. The remainder of course was on complicated and she was discharged on day 2. - ALLERGIES Allergies/Adverse Reactions: Allergies Allergy/AdvReac Type Severity Reaction Status Date / Time No Known Drug Allergies Allergy Verified 10/23/22 13:30 - MEDICATIONS Home Medications: Ambulatory Orders Medication Instructions Recorded Confirmed Famotidine [Pepcid] 20 mg PO BID 08/21/23 08/21/23 Metoclopramide [Reglan] 10 mg PO Q6H PRN 08/21/23 08/21/23 Docusate Sodium 100Mg Capsule 100 - 200 mg PO BID PRN #60 cap 08/22/23 [Colace 100Mg Capsule] Ibuprofen [Motrin] 600 mg PO Q6H PRN #30 tab 08/22/23 oxyCODONE [Roxicodone] 5 mg PO Q4H PRN #20 tablet 08/22/23 - LABS Result Diagrams: 08/21/23 04:59 08/20/23 16:00 - FOLLOW UP Follow Up: [facility] in [facility] week. - TIME SPENT Time Spent in Discharge (Minutes): 20
== END 2023-08-22 12:15 | disposition home or self-care (01) | DRG 784 ==
LOC: FBP 15:28
PROVIDERS: ADMIT Obstetrics & Gynecology; ATTEND Obstetrics & Gynecology
PROC: 0UT70ZZ Resection of Bilateral Fallopian Tubes, Open Approach (ICD-10-PCS; 2023-08-20)
PROC: 10D00Z1 Extraction of Products of Conception, Low, Open Approach (ICD-10-PCS; principal; 2023-08-20 17:30)
DX: O34.211 Maternal care for low transverse scar from previous cesarean delivery (principal); O10.92 Unspecified pre-existing hypertension complicating childbirth; N85.8 Other specified noninflammatory disorders of uterus; Z3A.37 37 weeks gestation of pregnancy; Z37.0 Single live birth; O21.2 Late vomiting of pregnancy; O26.53 Maternal hypotension syndrome, third trimester; Z30.2 Encounter for sterilization
CPT/HCPCS: 36415; 80053; 85025; 85027; 86850; 86900; 86901; A9270; J0131; J1200; J1650; J2274; J2372; J2765; J7120